=== PATIENT | male | born 1940 | race Caucasian/White ===

== ENCOUNTER → 2022-04-23 10:01 | Outpatient (BNVA) | payer MEDICARE, OTHER, SELFPAY | PROVIDERS: PCP Internal Medicine; Visit Provider Urology | DX: R32 Unspecified urinary incontinence (principal); N32.0 Bladder-neck obstruction | CPT/HCPCS: 51798 ==

== ENCOUNTER → 2022-06-18 11:03 | Outpatient (BNVA) | payer MEDICARE, OTHER, SELFPAY | PROVIDERS: PCP Internal Medicine; Visit Provider Urology | DX: N32.0 Bladder-neck obstruction (principal) | CPT/HCPCS: 52000 ==

== ENCOUNTER 2023-03-20 09:34 | Outpatient (AMB) | payer MEDICARE, OTHER, SELFPAY ==
--- NOTE | 2023-03-20 09:35 | MHC.OFFVIS ---
Intake Intake Visit Reasons: 6m follow up/PVR Intake Note: Patient is Present for Follow Up Urology Medication: Terazosin Antibiotic Allergies: Sulfa Blood Thinners: Aspirin PVR:0 Allergies Sulfa (Sulfonamide Antibiotics) Allergy (Unknown, Verified 03/20/23 09:36) Unknown HPI HPI Comments History of Present Illness Details Monty is a pleasant male. He is a patient of Dr. Meeks. He seen for the following urologic conditions. - urinary urgency - lower urinary tract symptoms Good responses resident Blood pressure running low Previously on tamsulosin Will switch from terazosin to alfuzosin 2 secondary concerns regarding blood pressure management Discussed safety regarding nighttime nocturia Encourage use of urinal if any concern regarding stability Lower urinary tract symptoms Background progressive Parkinson's Had been having weakness of stream Good response to terazosin 10 mg Prior medications tamsulosin Cystoscopy 07/03 open bladder neck Therapeutic plan - trial alfuzosin - 6 month follow-up PVR [facility] Medical History Parkinson disease Surgical History History of open heart surgery Review of Systems Const Denies chills and Denies fever(s) Card Reports no additional complaints and Denies syncope Resp Denies cough GI Denies abdominal pain and Denies heartburn Reports as per HPI and Denies change in libido Neuro Denies syncope Psych Denies change in libido Endo Denies change in libido Physical Exam Const General: cooperative, healthy appearing, comfortable and no acute distress Orientation/consciousness: patient oriented x3 HEENT Face and sinus: Yes normal facial exam Mouth: moist mucous membranes Neck Neck: Yes normal visual inspection, Yes full ROM and Yes trachea midline Chest Chest palpation & inspection: normal inspection of the chest Resp Effort & Inspection: normal respiratory effort, able to speak in complete sentences and no respiratory distress GI Inspection: Yes normal to inspection Back/Spine/Pelvis Cervical Spine: normal cervical lordosis Thoracic/Lumbar Spine: thoracic and lumbar spine normal to inspection Skin General skin exam: no rashes or lesions noted Neuro General: patient oriented x3, gait normal, tone normal and moves all extremities Extrem General: Yes normal to inspection and Yes capillary refill normal Office Procedures Post Void Residual Post Residual Void Post Void Residual (PVR): 0 [id number]-Shie Void Residual by ultrasound Assessment & Plan Assessment & Plan (1) Bladder outlet obstruction: Code(s): N32.0 - Bladder-neck obstruction Plan Six month follow-up Orders: Orders AMB Post Void Residual by ultrasound Today N32.0 - Bladder-neck obstruction Medications: New alfuzosin ER Take before bedtime 10 mg PO BEDTIME 90 tabs 1RF 90 days N32.0 - Bladder-neck obstruction, N40.1 - Benign prostatic hyperplasia with lower urinary tract symptoms, R33.9 - Retention of urine, unspecified, R35.1 - Nocturia, R39.12 - Poor urinary stream Discontinued terazosin Discontinued Reason: Patient Completed Course 10 mg PO BEDTIME 90 caps 0RF 90 days N13.8 - Other obstructive and reflux uropathy, N40.1 - Benign prostatic hyperplasia with lower urinary tract symptoms Patient Instructions: Imaging studies, laboratory and physical exam results were discussed and reviewed in detail. No major barriers to patient understanding were identified. An opportunity to ask questions regarding the treatment plan was provided. All questions were answered. The patient expressed understanding and agreement with the above treatment plan. The patient is aware they should contact our office by phone for worsening of their current condition or the appearance of new urologic symptoms. Compliance is encouraged with any medications and followup testing that is ordered. It is a privilege to participate in the urologic care of your patient. If you have any questions or concerns regarding treatment for the above conditions, or other urologic issues, please do not hesitate to contact me. The office telephone contact is [phone]. This note is constructed using voice recognition software. While every effort has been made to ensure accuracy dentist errors may have been included. Yours sincerely, Dr Rafael Ibarra MD, JULISA [facility] - Urology Providers of Expert, Compassionate Care for the Genitourinary System Coding Level of Care Code Est Pt Level 4 (67837) Diagnoses Bladder outlet obstruction N32.0 CPT Codes Post Residual Void - PVR CPT Code: 58956-Mrxy Void Residual by ultrasound ([id number])
== END 2023-03-20 10:09 | disposition home or self-care (01) ==
PROVIDERS: PCP Internal Medicine; Visit Provider Urology
DX: N32.0 Bladder-neck obstruction (principal)
CPT/HCPCS: 99214

== ENCOUNTER → 2023-03-20 09:34 | Outpatient (BNVA) | payer MEDICARE, OTHER, SELFPAY | PROVIDERS: PCP Internal Medicine; Visit Provider Urology | DX: N32.0 Bladder-neck obstruction (principal) | CPT/HCPCS: 51798; 99212 ==

== ENCOUNTER 2025-01-02 14:56 | Outpatient (AMB) | payer MEDICARE, OTHER, SELFPAY ==
--- NOTE | 2025-01-02 14:59 | A.OFFVIS_ITS ---
Vital Signs 01/02/25 15:00 Height 5 ft 7 in Weight 182 lb 15.739 oz BMI 28.7 BP 152/70 H Blood Pressure Location Lt brachial Position Sitting Pulse 60 Pulse Source Pulse Oximeter Pulse Oximetry (%) 97 Oxygen Delivery Method Room Air Intake Visit Reasons: Pulmonary embolism Medical Affairs Specialist Required: No Allergies Sulfa (Sulfonamide Antibiotics) Allergy (Unknown, Verified 01/02/25 15:04) Unknown HPI Comments Details: The patient is here for pulmonary evaluation. The patient is an 84-year-old gentleman known history of Parkinson's. Apparently he was in his usual state health until back around the end of August when he started not feeling well. Apparently had falling hurt his leg. He was more sedentary. He ended up going to the hospital at [facility] we had a workup for stroke. No evidence of any stroke although the CTA of the neck did leaf size picker what appeared to be a pulmonary emboli. Therefore he was called back to the hospital and had a formal CT scan PE protocol. I personally reviewed it. He had moderate degree of lot burden primarily in the right hemithorax more than the left. He also did undergo an echocardiogram demonstrating some RV strain suggesting a submassive PE. The patient has been on Eliquis. Unfortunately he has been falling because of the Parkinson's. Now he uses a walker. He had multiple falls and 1 resulting in a significant hematoma of his right thigh. He did have a CT scan of the thigh demonstrating the hematoma but also a slightly enlarged prostate. He was evaluated for prostate issues in the past. The patient also had colonoscopies. No evidence of any cancer that he is aware of. He had a filter placed at that time because he was taken off the Eliquis. Now he is back on the Eliquis in it I believe in January there be trying to remove the IVC filter. It is felt based on the fact that the patient had an injury to the leg that is likely that he developed a DVT and subsequently clot. Still was not clear 100% if this is a provoked or unprovoked event. However, he is high risk for falls and further bleeding and major bleeding while on the anticoagulation. The goal will be to try to treat the patient at least for 6 months unless the blood clots have not dissolved as of yet. He does have some dyspnea on exertion. Again demonstrating some right heart strain on his echo. The patient does have a family history of clotting as his mom had early strokes in her life. Will be reasonable to assess for hypercoagulable state at this time specially with other family members that may be also at risk. The patient will undergo a CTA he will continue the Eliquis for now the current dose and he will follow-up in a couple months. The hypercoagulable workup has been provided to the patient to do at [facility]. I am hopeful that the blood clots have resolved and the patient can have his filter taken off on the scheduled time. [facility] Medical History (Updated 01/02/25 @ 22:05 by Adama Elias MD) Falls Pulmonary emboli Parkinson disease Surgical History History of open heart surgery Social History (Updated 01/02/25 @ 15:09 by Nicolette Johnson CMA) Patient Tobacco Use Status: Former Tobacco user Review of Systems Const Denies chills, Denies fever(s) and Reports frequent falls Eyes Reports no additional complaints Card Reports no additional complaints, Denies syncope and Reports dyspnea on exertion Resp Denies cough, Reports dyspnea on exertion and Denies wheezing GI Denies abdominal pain and Denies heartburn Musc Reports abnormal gait Skin/Breast Reports wounds Neuro Reports abnormal gait, Denies syncope and Reports frequent falls Chepe/Lymph Reports no additional complaints Aller/Immun Denies wheezing Physical Exam Vital Signs: Last Vital Signs Pulse 60 01/02/25 15:00 BP 152/70 H 01/02/25 15:00 Pulse Ox 97 01/02/25 15:00 Oxygen Delivery Method Room Air 01/02/25 15:00 BMI result Body Mass Index 28.7 Const General: comfortable and no acute distress Orientation/consciousness: patient oriented x3 HEENT Head: Yes normocephalic Face and sinus: Yes normal facial exam Neck Neck: Yes normal visual inspection, Yes full ROM and Yes trachea midline Chest Chest palpation & inspection: normal inspection of the chest Resp Effort & Inspection: normal respiratory effort, able to speak in complete sentences and no respiratory distress Auscultation: clear to auscultation bilaterally Cardio Heart sounds: S1 normal heart sound present and S2 normal heart sound present GI Inspection: Yes normal to inspection Back/Spine/Pelvis Cervical Spine: normal cervical lordosis Thoracic/Lumbar Spine: thoracic and lumbar spine normal to inspection Skin Trauma: laceration (covered) Neuro General: patient oriented x3, gait normal, tone normal and moves all extremities Extrem General: Yes normal to inspection and Yes capillary refill normal Assessment & Plan Assessment & Plan (1) Pulmonary emboli: Comment: ?Provoked from leg injury/fall Code(s): I26.99 - Other pulmonary embolism without acute cor pulmonale Category: Medical Qualifiers: Pulmonary embolism type: unspecified Chronicity: acute Acute cor pulmonale presence: with acute cor pulmonale Qualified Code(s): I26.09 - Other pulmonary embolism with acute cor pulmonale (2) Falls: Code(s): R29.6 - Repeated falls Category: Medical (3) Parkinson disease: Code(s): G20 - Parkinson's disease Category: Medical Qualifiers: Dyskinesia presence: unspecified whether dyskinesia Fluctuating manifestations: unspecified whether manifestations fluctuate Qualified Code(s): G20.A1 - Parkinson's disease without dyskinesia, without mention of fluctuations Plan Continue Eliquis 5mg BID CTA to r/o residual clots/chronic thrombo-embolic disease-pt prefers [facility] Will have a possible IVC filter removal Bloodwork/hypercoagulability panel Consider repeating ECHO F/U 2 months and we will dicusss duration of treatment Orders: Orders CT angio chest PE protocol Today I26.99 - Other pulmonary embolism without acute cor pulmonale Prothrombin [id number] Today I26.99 - Other pulmonary embolism without acute cor pulmonale Homocysteine Today I26.99 - Other pulmonary embolism without acute cor pulmonale AT3 Activity reflex AT3Ag Today I26.99 - Other pulmonary embolism without acute cor pulmonale Factor V Leiden Today I26.99 - Other pulmonary embolism without acute cor pulmonale Lupus Anticoagulant Panel Today I26.99 - Other pulmonary embolism without acute cor pulmonale Basic Metabolic Panel Today I26.99 - Other pulmonary embolism without acute cor pulmonale Coding Level of Care Code New Pt Level 5 (78859) Diagnoses Acute pulmonary embolism with acute cor pulmonale, unspecified pulmonary embolism type I26.09 Pulmonary embolism type: unspecified Chronicity: acute Acute cor pulmonale presence: with acute cor pulmonale Falls R29.6 Parkinson's disease, unspecified whether dyskinesia present, unspecified whether manifestations fluctuate G20.A1 Dyskinesia presence: unspecified whether dyskinesia Fluctuating manifestations: unspecified whether manifestations fluctuate Time Spent (min) 60
[2025-01-02 15:00] VITALS: BP 152/70; PULSE 60; O2SAT 97; BMI 28.7
--- OUTSIDE RECORDS SUMMARY | 2025-01-02 16:38 | XMS_ITS | Encounter Summary ---
Author Organization [facility] Address [address] [place] [address] Care Team Providers Care Web Press Jogger Name Role Phone Demetrius Meeks Primary Care Provider [phone] Encounter Details Date Type Department Care Team (Late st Contact Info) Description 04/24/2022 myChart Message [facility] [address], [place] [id number] Parker Lantigua MD [address] [place] [address] Medication adjustment update Social History Tobacco Use Types Packs/Day Years Used Date Smoking Tobacco: Former Cigarettes 0.5 10 Smokeless Tobacco: Never Alcohol Use Standard Drinks/Week Comments Yes 3 (1 standard drink = 0.6 oz pur e alcohol) Sex and Gender Information Value Date Recorded Sex Assigned at Male 02/07/2022 12:33 PM EDT Legal Sex Male 8:18 AM EDT Gender Identity Male 02/07/2022 12:33 PM EDT Sexual Orientation Straight 02/07/2022 12 :33 PM EDT documented as of this encounter Miscellaneous Notes * Telephone Encounter - Taryn Sanford MD - 04/24/2022 2:15 PM ESTFrom: Monty Hammer To: Physician Parker Lantigua Sent: 04/24/2022 1:12 PM EST Subject: Medication adjustment update Hi Dr. Lantigua, this is Monty???s daughter Clare. I have just spent a few days with my dad and I feel like he hasn???t really improved since increasing his medication. He even seems slower and is reallystruggling when trying to do physical tasks. Would you want to change his medication again or do you want to lev t for him to be seen on June 02? Thanks! documented in this encounter Plan of Treatment Upcoming Encounters Date Type Department Care Team (Late st Contact Info) Description 03/16/2025 2:00 PM EST Office Visit [facility] [address] [place] [id number] Parker Lantigua MD [address] [place] [phone] 08/14/2025 1:00 PM EDT Office Visit [facility] Neurology [address] [address] Alma Badillo NP [address] [place] [phone] documented as of this encounter Visit Diagnoses Not on filedocumented in this encounter Care Teams Web Press Jogger Relationship Specialty Start Date End Date Demetrius Meeks PCP - General Internal Medicine 12/05/21 documented as of this encounter
--- OUTSIDE RECORDS SUMMARY | 2025-01-02 16:38 | XMS_ITS | Encounter Summary ---
Author Organization [facility] Address [address] [place] [address] Care Team Providers Care Automatic Bandsaw Tender Name Role Phone Demetrius Meeks Primary Care Provider [phone] Encounter Details Date Type Department Care Team (Late st Contact Info) Description 12/05/2021 Orders Only [facility] [address] [place] [address] Demetrius Meeks [address] [place] [address] Social History Tobacco Use Types Packs/Day Years Used Date Smoking Tobacco: Never Assessed Sex and Gender Information Value Date Recorded Sex Assigned at Male 02/07/2022 12:33 PM EDT Legal Sex Male 8:18 AM EDT Gender Identity Male 02/07/2022 12:33 PM EDT Sexual Orientation Straight 02/07/2022 12 :33 PM EDT documented as of this encounter Plan of Treatment Upcoming Encounters Date Type Department Care Team (Late st Contact Info) Description 03/16/2025 2:00 PM EST Office Visit [facility] [address] [place] [address] Parker Lantigua MD [address] [place] [address] 08/14/2025 1:00 PM EDT Office Visit [facility] [address] [place] [address] Alma Badillo, MINING ENGINEERING TECHNOLOGIST [address] [place] [address] documented as of this encounter Procedures * Due to [place] [email or web address] law, this organization might not be sharing negative HIV tests. Procedure Name Priority Date/Time Associated Diagnosis Comments LAB - SCANNED Routine 12/04/2021 AMB EXTERNAL XR HIP, OUTSIDE RESULT Routine 09/04/2021 US VENOUS DUPLEX, SCANNED RESULT Routine 08/29/2021 AMB EXTERNAL MRI L-SPINE, OU TSIDE RESULT Routine 08/27/2021 AMB EXTERNAL MRI BRAIN, OUTS ANDREINA RESULT Routine 10/04/2020 documented in this encounter Results * Due to [place] [email or web address] law, this organization might not be sharing negative HIV tests. * LAB - SCANNED (12/04/2021) us Demetrius Meeks LAB HISTORICAL RESULTS Final Re sult * XR Hip, Outside Result (09/04/2021) Anatomical Region Laterality Modality Other us Demetrius Meeks AMB EXTERNAL RESULT PROCEDURES Final Result * US Venous Duplex, Scanned Result (08/29/2021) Anatomical Region Laterality Modality Other us Demetrius Meeks AMB EXTERNAL RESULT PROCEDURES Final Result * MRI L-Spine, Outside Result (08/27/2021) Anatomical Region Laterality Modality Other us Demetrius Meeks AMB EXTERNAL RESULT PROCEDURES Final Result * MRI Brain, Outside Result (10/04/2020) Anatomical Region Laterality Modality Other us Demetrius Meeks AMB EXTERNAL RESULT PROCEDURES Final Result documented in this encounter Visit Diagnoses Not on filedocumented in this encounter Care Teams Automatic Bandsaw Tender Relationship Specialty Start Date End Date Demetrius Meeks PCP - General Internal Medicine 12/05/21 documented as of this encounter
--- OUTSIDE RECORDS SUMMARY | 2025-01-02 16:38 | XMS_ITS | Clinical Summary ---
Author Organization [facility], [place] [address] Address [address] [facility] [place] [address] Phone Care Team Providers Care Ball Mill Mixer Name Role Phone Demetrius Meeks MD Primary Care Provider [phone] Allergies Active Allergy Reactions Criticality Noted Date Comments Sulfacetamide Other 10/11/2020 Medications carbidopa-levodo pa (SINEMET) 25-100 mg per tablet Take 2 Tablets by mouth 4 times daily. Active midodrine (PROAMATINE) 5 mg tablet Take 1 Tablet by mouth 2 Times Daily. 2 tabs twice daily Active rosuvastatin (CRESTOR) 20 mg tablet Take 1 Tablet by mouth daily. Active sertraline (ZOLOFT) 25 mg tablet Take 1 tablet (25 mg total) by mouth 1 (one) time each day. Active multivitamine, geriatric, (Multivitamin 50 Plus) tablet Take 1 tablet by mouth 1 (one) time each day. Active CLONAZEPAM ORAL Take by mouth at bedtime. Dose unknown Active aspirin (Adult Low Dose Aspirin) 81 mg EC tablet Take 1 tablet (81 mg total) by mouth 1 (one) time each day. Active carbidopa-levodo pa CR (SINEMET CR) 50-200 mg per CR tablet Take 1 tablet by mouth at bedtime. Do not crush or chew. Active rivastigmine (EXELON) 3 mg capsule Take 1 capsule (3 mg total) by mouth 2 (two) times a day. Active isosorbide mononitrate (IMDUR) 30 mg 24 hr tablet TAKE 1 TABLET BY MOUTH EVERY DAY 90 tablet 3 11/14/2024 Active Active Problems Problem Noted Date Diagnosed Date Class 2 obesity due to exces s calories without serious comorbidity with body mass index (BMI) of 35.0 to 35.9 in adult 03/21/2024 Bradycardia 03/27/2023 Overview (04/25/2024): Medtronic dual chamber MRI compatible pacemaker 05/2023 Assessment & Plan (10/27/2024 12:02 PM EDT): Patient's heart rate is supported by his dual-chamber pacemaker. He has a very low ventricular pacing percentage. Continue in office and remote surveillance of his pacemaker as per protocol Assessment & Plan (04/25/2024 11:59 AM EST): The patient's heart rate is now supported by his pacemaker. He has not had any syncopal episodes. His pacemaker is normally functioning on remote and in office device interrogations. Continue to follow his device as per protocol Hyperlipidemia LDL goal <70 03/06/2022 Assessment & Plan (10/27/2024 12:05 PM EDT): Very well-controlled lipid profile on current dose statin. Continue Assessment & Plan (04/25/2024 11:59 AM EST): Well-controlled lipid profile on current dose statin. 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 Unfortunately, unable to find any other patent venous grafts on aortogram Assessment & Plan (10/27/2024 12:03 PM EDT): The patient denies any anginal discomfort to his current MET workload. Unfortunately, his autonomic dysfunction/orthostasis limits GDMT for his CAD. Continue his aspirin, long-acting nitrates and statin. He will notify me of any changes in his current condition. As always, we recommend as much physical activity/focus movement as possible. He is encouraged to get back to his typical exercise program through his facility. Assessment & Plan (04/25/2024 11:59 AM EST): The patient has mcgrath three-vessel CAD and all other grafts aside from his SCHMIDT to the LAD occluded. He does have collateral flow from his LAD to the RPDA and RPL. Currently, he has no anginal symptoms to his current MET workload. He remains on long-acting nitrates as well as aspirin and statin. Since he is greater than 1 year status post his NSTEMI, we will discontinue his Plavix due to his bruising. I did confirm that our recommendation is that he remain on at least 1 antiplatelet agent given his significant CAD. The patient is daughter understand. Essential hypertension 10/15/2020 Assessment & Plan (10/27/2024 12:04 PM EDT): Blood pressure well-controlled in office today without periods of orthostasis. He has not had any syncopal or presyncopal episodes on his current dose of midodrine. Continue the same Assessment & Plan (04/25/2024 11:59 AM EST): Patient's blood pressure is well-controlled in office today. He does have ongoing episodes of postural dizziness, likely related to autonomic dysfunction from his Parkinson's disease. As such, he will continue his midodrine. His Imdur would not likely have a significant impact on his blood pressure, and he is tolerating it quite well currently. Therefore, will not make any changes. We discussed moving his legs prior to any position changes and changing positions slowly. I also prescribed him prescription level compression stockings with a donning device. If it ends up being easier, we can certainly prescribe the Velcro wraps instead of the pull-on DARRYL stockings. The patient and his daughter will keep me posted if he needs a different prescription. As always, adequate hydration is recommended. Parkinson's disease ([facility] [place]24, [facility] V28) 0 10/15/2020 Resolved Problems Problem Noted Date Diagnosed Date Resolved Date NSTEMI (non-ST elevated myoc ardial infarction) ([facility] V24, [facility] V28) 12/30/2022 0 10/27/2024 Encounters Date Type Department Care Team Description 12/07/2024 9:30 PM EDT Ancillary Procedure [facility] Cardiology [facility] [address] [place] [address] 11/22/2024 9:16 AM EDT - 11/22/2024 11:59 PM EDT Hospital Encounter [facility] MRI [address] [place] [id number] Right leg weakness Discharge Disposition: Home or Self Care 10/27/2024 9:40 AM EDT Office Visit [facility] [address] [place] [address] Charlotte Concepcion NP Bradycardia (Primary Dx); Coronary artery disease involving mcgrath coronary artery of mcgrath heart without angina pectoris; Essential hypertension; Hyperlipidemia LDL goal <70 10/27/2024 Telephone [facility] - [address] [place] [address] Charlotte Concepcion NP 10/10/2024 Telephone [facility] [address] [place] [address] Barrie Gates MD 10/07/2024 Lab Requisition [facility] Lab [address] [facility] [place] [phone] Maura Ribera MD Type 2 diabetes mellitus without complications ([facility] V24, [facility] V28); Atherosclerotic heart disease of mcgrath coronary artery without angina pectoris; Hyperlipidemia, unspecified; Chronic embolism and thrombosis of unspecified vein 10/03/2024 Lab Requisition [facility] Lab [address] [facility] [place] [place] [address] Maura Ribera MD Type 2 diabetes mellitus without complications ([facility] V24, [facility] V28); Atherosclerotic heart disease of mcgrath coronary artery without angina pectoris; Hyperlipidemia, unspecified; Chronic embolism and thrombosis of unspecified vein from Last 3 Months Immunizations Name Administration Dates Next Due Influenza trivalent, 0.5mL ( Fluad) 65yo and older 02/28/2017,02/02/2016,02/10/2015 Influenza trivalent, 0.5mL, preservative free (Fluarix; FluLaval; Fluzone) ages 6mo and older (Afluria) 3 years and older 01/29/2020 Pneumococcal polysaccharide 23 valent (Pneumovax 23) 2yo and older 02/02/2016 Medical History Medical History Date Comments Hemorrhagic disorder due to extrinsic circulating anticoagulants ([facility] V24) Parkinson's disease ([facility] V24, [facility] V28) Traumatic hematoma of right thigh Family History Medical History Relation Name Comments CABG Son Fahad Relation Name Status Comments Ari Vásquez Alive Social History Tobacco Use Types Packs/Day Years Used Date Smoking Tobacco: Former Cigarettes Q uit: 05/11/1979 Smokeless Tobacco: Never Alcohol Use Standard Drinks/Week Comments Never 0 (1 standard drink = 0.6 oz pur e alcohol) Sex and Gender Information Value Date Recorded Sex Assigned at Not on file Legal Sex Male 9:08 PM EST Gender Identity Not on file Sexual Orientation Not on file Obstetrics History Last Filed Vital Signs Vital Sign Reading Time Taken Comments Blood Pressure 110/65 10/27/2024 10:06 AM EDT Pulse 68 10/27/2024 10:06 AM EDT Temperature - - Respiratory Rate - - Oxygen Saturation 96% 10/27/2024 10:06 AM EDT Inhaled Oxygen Concentration - - Weight 82.1 kg (181 lb) 10/27/2024 10:06 AM EDT Height 168.9 cm (5' 6.5 ) 10/27/2024 10:06 AM ED T Body Mass Index 28.78 10/27/2024 10:06 AM EDT Plan of Treatment Upcoming Encounters Date Type Department Care Team (Late st Contact Info) Description 06/12/2025 10:30 AM EST Ancillary Procedure [facility] [address] [facility] [address] [place] [address] Health Maintenance Due Date Last Done Comments Diabetes: Annual Foot Exam 02/15/1950 Diabetes: Annual Retina Eye Exam 02/15/1950 DTaP,Tdap,and Td Vaccines (1 - Tdap) 1961 Zoster Vaccines (1 of 2) 02/15/1992 Pneumococcal Vaccine: 50+ Years (2 of 2 - PCV) 02/01/2017 02/02/2016 RSV Immunization Adult Patients (1 - 1-dose 75+ series) 2017 Cholesterol Screening (Lipid Panel) 04/12/2022 Falls Risk Assessment 04/12/2022 Medicare Annual Wellness Visit 04/12/2022 Social Influencers of Health Screening 04/12/2022 Depression Screening 05/11/2024 COVID-19 Vaccine ( season) 2024 02/19/2024, 02/24/2022, 09/10/2021, Additional history exists Diabetes: Annual Urine Albumin-Creatinine Ratio (uACR) 09/20/2024 Diabetes: Blood Sugar Control Test (HGBA1C) 09/20/2024 Influenza Vaccine (#1) 2025 , 02/06/2023, 02/11/2022, Additional history exists Diabetes: Annual GFR (Glomerular Filtration Rate) 10/04/2025 10/04/2024, 09/26/2024, 09/20/2024 Hypertension/CHF/CAD Annual BMP Blood Test 10/04/2025 10/04/2024, 09/26/2024, 09/20/2024 HIB Vaccines Aged Out No longer eligi ble based on patient's age to complete this topic HPV Vaccines Aged Out No longer eligi ble based on patient's age to complete this topic Hepatitis A Vaccines Aged Out No long er eligible based on patient's age to complete this topic Hepatitis B Vaccines Aged Out No long er eligible based on patient's age to complete this topic IPV Vaccines Aged Out No longer eligi ble based on patient's age to complete this topic MMR Vaccines Aged Out No longer eligi ble based on patient's age to complete this topic Meningococcal ACWY Vaccine Aged Out N o longer eligible based on patient's age to complete this topic Meningococcal B Vaccine Aged Out No l onger eligible based on patient's age to complete this topic RSV Immunization Patients Under 20 months Aged Out No longer eligible based on patient's age to complete this topic Varicella Vaccines Aged Out No longer eligible based on patient's age to complete this topic Medical Devices Implanted Type Area Fisher Seal Device Identifier Shelf Expiration Date Model / Serial / Lot Medt-Card Vidal Vega [id number] Implanted: (Quantity not on file) Cardiac Pacemaker [employer] - CARDIAC RHYTH-CRDM VIDAL XT DR VEGA [id number] / [id number] / Procedures Procedure Name Priority Date/Time Associated Diagnosis Comments CARDIAC DEVICE CHECK- REMOTE- MURJ Routine 12/07/2024 9:25 PM EDT MR LUMBAR SPINE WO CONTRAST Routine 11/22/2024 11:12 AM EDT Right leg weakness BASIC METABOLIC PANEL Routine 10/04/2024 10:17 AM EDT Type 2 diabetes mellitus without complications (CMS/HCC V24, CMS/HCC V28) Atherosclerotic heart disease of mcgrath coronary artery without angina pectoris Hyperlipidemia, unspecified Chronic embolism and thrombosis of unspecified vein COMPLETE BLOOD COUNT Routine 10/04/2024 10:17 AM EDT Type 2 diabetes mellitus without complications (CMS/HCC V24, CMS/HCC V28) Atherosclerotic heart disease of mcgrath coronary artery without angina pectoris Hyperlipidemia, unspecified Chronic embolism and thrombosis of unspecified vein from Last 3 Months Results * Cardiac device check - Remote- MURJ (12/07/2024 9:25 PM EDT) Date Time Interrogation Session [id number] CV DEVICE CHECK Type Interrogation Session Remote CV DEVICE CHECK Implantable Pulse Generator Fisher Seal MDT CV DEVICE CHECK Implantable Pulse Generator Type IPG CV DEVICE CHECK Implantable Pulse Generator Model [place] XT DR VEGA [id number] CV DEVICE CHECK Implantable Pulse Generator Serial Number [id number] CV DEVICE CHECK Implantable Pulse Generator Implant Date [id number] CV DEVICE CHECK Battery Remaining Longevity 110.0 CV DEVICE CHECK Battery Voltage 3.010 CV D EVICE CHECK Battery FRONT DESK TEAM MEMBER Trigger 2.625 CV DEVICE CHECK Battery Status Middle of Service CV DEVICE CHECK Elan Statistic RA Percent Paced 74.94 CV DEVICE CHECK Elan Statistic RV Percent Paced 7.30 CV DEVICE CHECK Atrial Tachy Statistic AT/AF Gilbert Percent 0.00 CV DEVICE CHECK Lead Channel Sensing Intrinsic Amplitude 1.875 CV DEVICE CHECK Lead Channel Setting Sensing Sensitivity 0.30 CV DEVICE CHECK Lead Channel Impedance Value 380 CV DEVICE CHECK Lead Channel Pacing Threshold Amplitude 1.125 CV DEVICE CHECK Lead Channel Pacing Threshold Pulse Width 0.4 CV DEVICE CHECK Lead Channel RA Pacing Threshold Date 2023-05-30 CV DEVICE CHECK Lead Channel Setting Pacing Amplitude 2.000 CV DEVICE CHECK Lead Channel Setting Pacing Pulse Width 1.5 CV DEVICE CHECK Lead Channel Sensing Intrinsic Amplitude 21.625 CV DEVICE CHECK Lead Channel Setting Sensing Sensitivity 0.90 CV DEVICE CHECK Lead Channel Impedance Value 646 CV DEVICE CHECK Lead Channel Pacing Threshold Amplitude 1.375 CV DEVICE CHECK Lead Channel Pacing Threshold Pulse Width 0.4 CV DEVICE CHECK Lead Channel RV Pacing Threshold Date 2024-11-28 CV DEVICE CHECK Lead Channel Setting Pacing Amplitude 2.750 CV DEVICE CHECK Lead Channel Setting Pacing Pulse Width 0.4 CV DEVICE CHECK Elan Setting Mode (NBG Code) AAI<=>DDD CV DEVICE CHECK Elan Setting Lower Rate Limit 60 CV DEVICE CHECK Elan Setting AT Mode Switch Rate 171 CV DEVICE CHECK Elan Setting Maximum Tracking Rate 130 CV DEVICE CHECK Elan Setting Maximum Sensor Rate 130 CV DEVICE CHECK Elan Setting PAV Delay 180 CV DEVICE CHECK Elan Setting CHIDI Delay 150 CV DEVICE CHECK Zone Setting Type Category AT/AF CV DEVICE CHECK Rate 171 CV DEVICE CHECK Therapies Some Rx Off CV DEVIC E CHECK Zone Setting Status Monitor CV DEVICE CHECK Zone ID 2 CV DEVICE CHECK Zone Setting Type Category VT CV DEVICE CHECK Rate 150 CV DEVICE CHECK Zone Setting Status ENABLED CV DEVICE CHECK Zone ID 6 CV DEVICE CHECK Date of Service 2024-12-13 CV DEVICE CHECK Anatomical Region Laterality Modality Device Interroga tion 11/29/2024 12:2 8 AM EDT Impressions 12/07/2024 4:15 PM EDT Normal Remote: No Events * Normal Device Function * Alerts or events: None * Battery: OK, 9.17 yrs * Sensing, impedance and thresholds reviewed * Programmed parameters reviewed * Presenting rhythm reviewed * Heart Rate Histograms reviewed * No significant changes noted Narrative Procedure Note Joe Lee MD - 12/07/2024 IMPRESSION: Normal Remote: No Events * Normal Device Function * Alerts or events: None * Battery: OK, 9.17 yrs * Sensing, impedance and thresholds reviewed * Programmed parameters reviewed * Presenting rhythm reviewed * Heart Rate Histograms reviewed * No significant changes noted us Joe Lee MD CV IMPLANTABLE CARDIAC DEV ICE PROCEDURES Final Result * MR Lumbar Spine wo Contrast (11/22/2024 11:12 AM EDT) Anatomical Region Laterality Modality L-spine, Spine Magnetic Resonan ce 11/22/2024 12:0 3 PM EDT Impressions 11/22/2024 12:16 PM EDT Central laminotomy at L4-5. Degenerative changes throughout the lumbar spine. The findings are similar to 08/27/2021. -------- FINAL REPORT -------- Dictated By: Fahad Cedeño Dictated Date: 11/22/2024 12:03 ET Assigned Physician: Fahad Cedeño Reviewed and Electronically Signed By: Fahad Cedeño Signed Date: 11/22/2024 12:16 ET Workstation ID: [id number] Transcribed By: Self Edit Transcribed Date: 11/22/2024 12:03 ET Narrative 11/22/2024 12:16 PM EDT PROCEDURE: MRI of the lumbar spine without contrast. TECHNIQUE: Multiplanar multisequence MRI of the lumbar spine without intravenous contrast administration. HISTORY: right leg weakness COMPARISON: 08/27/2021. FINDINGS: Circumaortic left renal vein. Mild lower lumbar and sacral paraspinous muscular atrophy. Postsurgical scarring in the dorsal soft tissues at L4-5. Slight L4-5 anterolisthesis. No marrow infiltrative lesion. No compression deformity. Mild Baastrup's changes. Normal position of the conus at T12. Mortise levels: L1-2: Mild disc space height loss and endplate irregularity. Small symmetric disc bulge. Mild bilateral facet arthropathy and ligamentum flavum hypertrophy. No significant spinal or foraminal stenosis. L2-3: Mild endplate irregularity. Small symmetric disc bulge with minimal endplate osteophytes. Slight widening of the right facet joint and mild bilateral ligament flavum hypertrophy suggesting facet joint hypermobility. Mild bilateral facet arthropathy. Mild right foraminal stenosis. Mild spinal stenosis. L3-4: Mild endplate irregularity. Small symmetric disc bulge with minimal endplate osteophytes. Mild bilateral facet arthropathy. No significant spinal or foraminal stenosis. L4-5: Slight anterolisthesis. Mild endplate irregularity. Very small protrusion and annular fissure in the left foraminal zone. Moderate bilateral facet arthropathy. Central laminotomy defect. No significant spinal or foraminal stenosis. L5-S1: Moderate disc space height loss and endplate irregularity with a small symmetric disc osteophyte complex and mild bilateral facet arthropathy. Mild left foraminal stenosis. No spinal stenosis. Procedure Note Fahad Cedeño MD - 11/22/2024 PROCEDURE: MRI of the lumbar spine without contrast. TECHNIQUE: Multiplanar multisequence MRI of the lumbar spine withoutintravenous contrast administration. HISTORY: right leg weakness COMPARISON: 08/27/2021. FINDINGS: Circumaortic left renal vein. Mild lower lumbar and sacral paraspinousmuscular atrophy. Postsurgical scarring in the dorsal soft tissues atL4-5. Slight L4-5 anterolisthesis. No marrow infiltrative lesion. Nocompression deformity. Mild Baastrup's changes. Normal position of the conus at T12. Mortise levels: L1-2: Mild disc space height loss and endplate irregularity. Smallsymmetric disc bulge. Mild bilateral facet arthropathy and ligamentumflavum hypertrophy. No significant spinal or foraminal stenosis. L2-3: Mild endplate irregularity. Small symmetric disc bulge with minimalendplate osteophytes. Slight widening of the right facet joint and mildbilateral ligament flavum hypertrophy suggesting facet jointhypermobility. Mild bilateral facet arthropathy. Mild right foraminalstenosis. Mild spinal stenosis. L3-4: Mild endplate irregularity. Small symmetric disc bulge with minimalendplate osteophytes. Mild bilateral facet arthropathy. No significantspinal or foraminal stenosis. L4-5: Slight anterolisthesis. Mild endplate irregularity. Very smallprotrusion and annular fissure in the left foraminal zone. Moderatebilateral facet arthropathy. Central laminotomy defect. No significantspinal or foraminal stenosis. L5-S1: Moderate disc space height loss and endplate irregularity with asmall symmetric disc osteophyte complex and mild bilateral facetarthropathy. Mild left foraminal stenosis. No spinal stenosis. IMPRESSION: Central laminotomy at L4-5. Degenerative changes throughout the lumbarspine. The findings are similar to 08/27/2021. -------- FINAL REPORT -------- Dictated By: Fahad Cedeño Dictated Date: 11/22/2024 12:03 ET Assigned Physician: Fahad Cedeño Reviewed and Electronically Signed By: Fahad Cedeño Signed Date: 11/22/2024 12:16 ET Workstation ID: [id number] Transcribed By: Self Edit Transcribed Date: 11/22/2024 12:03 ET Erlinda FINK IMG MRI PROCEDURES Final Res ult * (ABNORMAL) Complete blood count (10/04/2024 10:17 AM EDT) WBC 6.5 4.8 - 10.8 K/mcL LAB HEMETOLOGY METHOD 10/04/2024 1:15 PM EDT [facility] RBC 3.60(L) 4.50 - 5.50 M/mcL LAB HEMETOLOGY METHOD 10/04/2024 1:15 PM EDT [facility] Hemoglobin 12.1(L) 13.5 - 17.5 g/dL LAB HEMETOLOGY METHOD 10/04/2024 1:15 PM EDT [facility] Hematocrit 39.4(L) 42.0 - 54.0 % LAB HEMETOLOGY METHOD 10/04/2024 1:15 PM EDT [facility] MCV 108.2(H) 79.0 - 98.0 FL LAB HEMETOLOGY METHOD 10/04/2024 1:15 PM EDT [facility] MCH 33.2(H) 27.0 - 32.0 pcg LAB HEMETOLOGY METHOD 10/04/2024 1:15 PM EDT [facility] MCHC 30.7(L) 32.0 - 37.0 g/dL LAB HEMETOLOGY METHOD 10/04/2024 1:15 PM EDT [facility] RDW 17.2(H) 11.0 - 15.0 % LAB HEMETOLOGY METHOD 10/04/2024 1:15 PM EDT [facility] Platelets 374 130 - 400 K/mcL LAB HEMETOLOGY METHOD 10/04/2024 1:15 PM EDT [facility] MPV 9.7 7.0 - 11.0 FL LAB HEMETOLOGY METHOD 10/04/2024 1:15 PM EDT [facility] NRBC 0.0 <1.0 % LAB HEMETOLOGY METHOD 10/04/2024 1:15 PM EDT [facility] NRBC Absolute 0.00 <0.10 K/mcL LAB HEMETOLOGY METHOD 10/04/2024 1:15 PM EDT [facility] Blood Venous blood specimen / Unknown Venipuncture / Unknown 10/04/2024 10:17 AM EDT 10/04/2024 12:21 PM EDT us Maura Ribera MD LAB BLOOD ORDERABLES Fin al Result [facility] [address] [place] [address], * (ABNORMAL) Basic metabolic panel (10/04/2024 10:17 AM EDT) Sodium 138 133 - 145 mmol/L LAB CHEMISTRY METHOD 10/04/2024 2:19 PM EDT [facility] Potassium 4.5 3.5 - 5.5 mmol/L LAB CHEMISTRY METHOD 10/04/2024 2:19 PM EDT [facility] Chloride 107 96 - 110 mmol/L LAB CHEMISTRY METHOD 10/04/2024 2:19 PM [facility] CO2 27 21 - 32 mmol/L LAB CHEMISTRY METHOD 10/04/2024 2:19 PM [facility] Anion Gap 4 3 - 11 LAB CHEMISTRY METHOD 10/04/2024 2:19 PM [facility] Glucose 132(H) 70 - 100 mg/dL LAB CHEMISTRY METHOD 10/04/2024 2:19 PM [facility] BUN 20 5 - 25 mg/dL LAB CHEMISTRY METHOD 10/04/2024 2:19 PM [facility] Creatinine 0.94 0.70 - 1.30 mg/dL LAB CHEMISTRY METHOD 10/04/2024 2:19 PM [facility] eGFR 81 >=60 mL/min/1. 73m2 LAB CHEMISTRY METHOD 10/04/2024 2:19 PM [facility] Comment:Calculation based on the Chronic Kidney Disease Epidemiology Collaboration (CKD-EPI) equation refit without adjustment for race. BUN/Creatinine Ratio 21.3 LAB CHEMISTRY METHOD 10/04/2024 2:19 PM [facility] Calcium 9.6 8.5 - 10.5 mg/dL LAB CHEMISTRY METHOD 10/04/2024 2:19 PM [facility] Blood Venous blood specimen / Unknown Venipuncture / Unknown 10/04/2024 10:17 AM EDT 10/04/2024 12:18 PM EDT us Maura Ribera MD LAB BLOOD ORDERABLES Fin al Result [facility] [address] [place] [address], from Last 3 Months Insurance MEDICARE [facility] Care Teams Ball Mill Mixer Relationship Specialty Start Date End Date Demetrius Meeks MD [address] [place] [phone] PCP - General Internal Medicine 06/15/24
--- OUTSIDE RECORDS SUMMARY | 2025-01-02 16:38 | XMS_ITS | Encounter Summary ---
Author Organization [facility] Address [address] [place] [address] Care Team Providers Care Portainer Operator Name Role Phone Demetrius Meeks Qasim Primary Care Provider [phone] Encounter Details Date Type Department Care Team (Late st Contact Info) Description 05/27/2024 myChart Message [facility] Financial Clearance Department [address] [place] [id number] Neli Mccormack donepeziL (ARICEPT) 5 mg tablet Social History Tobacco Use Types Packs/Day Years [...] Description 03/16/2025 2:00 PM EST Office Visit [facility] [address] [place] [address] Parker Lantigua MD [address] [place] [address] 08/14/2025 1:00 PM EDT Office Visit [facility] [address] [place] [address] Alma Badillo, WEB MACHINE TENDER [address] [place], [place] [phone] documented as of this encounter Visit Diagnoses Not on filedocumented in this encounter Care Teams Portainer Operator Relationship Specialty Start Date End Date Demetrius Meeks PCP - General Internal Medicine 12/05/21 documented as of this encounter
--- OUTSIDE RECORDS SUMMARY | 2025-01-02 16:38 | XMS_ITS | Clinical Summary ---
Author Organization [facility] Address [address] [place] [address] Care Team Providers Care Slusher Operator Name Role Phone Demetrius Meeks Primary Care Provider [phone] Allergies Active Allergy Reactions Criticality Noted Date Comments Sulfa (Sulfonamide Antibiotics) Rash Low 07/2020 Medications isosorbide mononitrate ER (IMDUR) 30 mg tablet Take 30 mg by mouth once a day. 2 Active polyethylene glycol 3350 (MIRALAX ORAL) Take 17 g by mouth. 3 Active melatonin 5 mg tablet,chewable Chew and swallow 5 mg by mouth nightly. Active aspirin (ASPIR-81 ORAL) Acti ve multivitamin (THERAGRAN) tablet Take 1 tablet by mouth once a day. Active rosuvastatin (CRESTOR) 20 mg tablet Take 20 mg by mouth once a day. Active famotidine (PEPCID) 20 mg tablet SMARTSI Tablet(s) By Mouth Twice Daily PRN 5 Active carbidopa-levod opa ER/CR (SINEMET ER/CR) 50-200 mg tablet Take 1 tablet by mouth nightly. At bedtime (9-10 PM) 90 tablet 3 5 026 Active sertraline (ZOLOFT) 25 mg tablet TAKE 1 TABLET BY MOUTH EVERY NIGHT. 90 tablet 3 5 Active carbidopa-levod opa (SINEMET) 25-100 mg tablet TAKE 2 TABLETS BY MOUTH 4 TIMES A DAY AT 8 AM, 12 NOON, 4 PM, AND 8 PM 720 tablet 3 5 Active midodrine (PROAMATINE) 5 mg tablet TAKE 2 TABLETS (10 MG TOTAL) BY MOUTH 2 (TWO) TIMES A DAY. 10 MG AT 8 AM AND 10 MG AT 2 PM 360 tablet 1 5 Active rivastigmine (EXELON) 4.5 mg capsule Take 1 capsule (4.5 mg total) by mouth 2 times a day. 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 Excessive daytime sleepiness 12/02/2022 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 Slow transit constipation 06/04/2022 Peripheral edema 08/21/2021 Shortness of breath 08/21/2021 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 Essential hypertension 10/15/2020 Coronary artery disease invo lving [place] coronary artery of [place] heart without angina pectoris 10/15/2020 Parkinson's disease 11/07/2018 Heart disease 02/07/1991 Encounters Date Type Department Care Team Description 12/20/2024 Refill [facility] [address] [place] [phone] Taryn Sanford MD REM sleep behavior disorder 12/13/2024 Refill [facility] [address] [place] [address] Taryn Sanford MD REM sleep behavior disorder 12/06/2024 10:00 AM EDT Telehealth [facility] [address] [place] [phone] Alma Badillo NP Parkinson's disease without dyskinesia or fluctuating manifestations (HCC) (Primary Dx) 11/19/2024 Refill [facility] [address] [place] [address] Parker Lantigua MD 11/15/2024 Refill [facility] [address] [place] [address] Parker Lantigua MD 11/11/2024 Refill [facility] [address] [place] [phone] Parker Lantigua MD 10/30/2024 Refill [facility] [address] [place] [address] Parker Lantigua MD 10/28/2024 Telephone [facility] [address] [place] [address] Rachel Koenig RN from Last 3 Months Family History Medical History Relation Name Comments Stroke Maternal Grandfather Stroke Maternal Grandmother Stroke Mother Relation Name Status Comments Maternal Grandfather Maternal Grandmother Mother Social History Tobacco Use Types Packs/Day Years [...] Orientation Straight 02/07/2022 12 :33 PM EDT Last Filed Vital Signs Vital Sign Reading Time Taken Comments Blood Pressure 93/61 08/11/2024 3:16 PM EDT Pulse 60 08/11/2024 3:16 PM EDT Temperature 36.4 C (97.6 F) 08/11/2024 3:10 PM EDT Respiratory Rate 18 08/11/2024 3:10 PM EDT Oxygen Saturation 98% 08/11/2024 3:10 PM EDT Inhaled Oxygen Concentration - - Weight 83.9 kg (185 lb) 08/11/2024 3:10 PM EDT Height 170.2 cm (5' 7 ) 08/11/2024 3:10 PM EDT Body Mass Index 28.98 08/11/2024 3:10 PM EDT Plan of Treatment Upcoming Encounters Date Type Department Care Team (Late st Contact Info) Description 03/16/2025 2:00 PM EST Office Visit [facility] [address] [place] [address] Parker Lantigua MD [address] [place] [address] 08/14/2025 1:00 PM EDT Office Visit [facility] [address] [place] [phone] Alma Badillo NP [address] [place] [phone] Health Maintenance Due Date Last Done Comments Medicare AWV 1941 DTaP,Tdap,and Td Vaccines (1 - Tdap) 02/15/1964 Zoster Vaccines (1 of 2) 02/15/1992 Pneumococcal Vaccine: 50+ Years (2 of 2 - PCV) 02/01/2017 02/02/2016 RSV Vaccine (60+ years old and patients) (1 - 1-dose 75+ series) 2017 Alcohol/Substance Use Screening 05/11/2024 Depression Screening and Follow-Up 05/11/2024 Health Care Proxy Review 05/11/2024 Social Drivers of Health Annual Screening 05/11/2024 COVID-19 Vaccine ( season) 2024 02/19/2024, 02/24/2022, 09/10/2021, Additional history exists Influenza Vaccine (#1) 2025 , 02/06/2023, 02/11/2022, Additional history exists Basic Metabolic Panel 10/04/2025 10/04/2024 , 09/26/2024, 09/20/2024 Hepatitis B Vaccines Aged Out No long er eligible based on patient's age to complete this topic Insurance MEDICARE [facility] Care Teams Slusher Operator Relationship Specialty Start Date End Date Demetrius Meeks PCP - General Internal Medicine 12/05/21
--- OUTSIDE RECORDS SUMMARY | 2025-01-02 16:38 | XMS_ITS | Encounter Summary ---
Author Organization [facility] Address [address] [place] [address] Care Team Providers Care Assignment Desk Editor Name Role Phone Demetrius Meeks MD Primary Care Provider [phone] Encounter Details Date Type Department Care Team (Late Contact Info) Description 10/03/2024 Lab Requisition [facility] - Main Lab [address] [facility] [place] [address] Maura Ribera MD [address] [facility] 1 [place], [place] [phone] Type 2 diabetes mellitus without complications (CMS/HCC V24, CMS/HCC V28); Atherosclerotic heart disease of [place] coronary artery without angina pectoris; Hyperlipidemia, unspecified; Chronic embolism and thrombosis of unspecified vein Social History Tobacco Use Types Packs/Day Years [...] on file Sexual Orientation Not on file documented as of this encounter Plan of Treatment Upcoming Encounters Date Type Department Care Team (Late Contact Info) Description 06/12/2025 10:30 AM EST Ancillary Procedure [facility] - [address] [facility] [address] [place] [address] documented as of this encounter Procedures Procedure Name Priority Date/Time Associated Diagnosis Comments COMPLETE BLOOD COUNT Routine 10/04/2024 10:17 AM EDT Type 2 diabetes mellitus without complications ([facility] V24, [facility] V28) Atherosclerotic heart disease of [place] coronary artery without angina pectoris Hyperlipidemia, unspecified Chronic embolism and thrombosis of unspecified vein BASIC METABOLIC PANEL Routine 10/04/2024 10:17 AM EDT Type 2 diabetes mellitus without complications ([facility] V24, [facility] V28) Atherosclerotic heart disease of [place] coronary artery without angina pectoris Hyperlipidemia, unspecified Chronic embolism and thrombosis of unspecified vein documented in this encounter Results * (ABNORMAL) Basic metabolic panel (10/04/2024 10:17 AM EDT) Sodium 138 133 - 145 mmol/L LAB CHEMISTRY METHOD 10/04/2024 2:19 PM [facility] Potassium 4.5 3.5 - 5.5 mmol/L LAB CHEMISTRY METHOD 10/04/2024 2:19 PM [facility] Chloride 107 96 - 110 mmol/L LAB CHEMISTRY METHOD 10/04/2024 2:19 PM [facility] CO2 27 21 - 32 mmol/L LAB CHEMISTRY METHOD 10/04/2024 2:19 PM [facility] Anion Gap 4 3 - 11 LAB CHEMISTRY METHOD 10/04/2024 2:19 PM [facility] Glucose 132(H) 70 - 100 mg/dL LAB CHEMISTRY METHOD 10/04/2024 2:19 PM [facility] BUN 20 5 - 25 mg/dL LAB CHEMISTRY METHOD 10/04/2024 2:19 PM [facility] Creatinine 0.94 0.70 - 1.30 mg/dL LAB CHEMISTRY METHOD 10/04/2024 2:19 PM [facility] eGFR 81 >=60 mL/min/1. 73m2 LAB CHEMISTRY METHOD 10/04/2024 2:19 PM EDT [facility] Comment:Calculation based on the Chronic Kidney Disease Epidemiology Collaboration (CKD-EPI) equation refit without adjustment for race. BUN/Creatinine Ratio 21.3 LAB CHEMISTRY METHOD 10/04/2024 2:19 PM EDT [facility] Calcium 9.6 8.5 - 10.5 mg/dL LAB CHEMISTRY METHOD 10/04/2024 2:19 PM EDT [facility] Blood Venous blood specimen / Unknown Venipuncture / Unknown 10/04/2024 10:17 AM EDT 10/04/2024 12:18 PM EDT us Maura Ribera MD LAB BLOOD ORDERABLES Fin al Result [facility] [address] [place] [address], * (ABNORMAL) Complete blood count (10/04/2024 10:17 AM EDT) WBC 6.5 4.8 - 10.8 K/mcL LAB HEMETOLOGY METHOD 10/04/2024 1:15 PM EDT [facility] RBC 3.60(L) 4.50 - 5.50 M/mcL LAB HEMETOLOGY METHOD 10/04/2024 1:15 PM T [facility] Hemoglobin 12.1(L) 13.5 [...] al Result [facility] [address] [place] [address], documented in this encounter Visit Diagnoses Diagnosis Type 2 diabetes mellitus without complications (CMS/HCC V24, CMS/HCC V28) Atherosclerotic heart disease of [place] coronary artery without angina pectoris Hyperlipidemia, unspecified Chronic embolism and thrombosis of unspecified vein Encounter for adjustment or management of cardiac device documented in this encounter Care Teams Assignment Desk Editor Relationship Specialty Start Date End Date Demetrius Meeks MD [address] [place] [address] PCP - General Internal Medicine 06/15/24 documented as of this encounter
--- OUTSIDE RECORDS SUMMARY | 2025-01-02 16:38 | XMS_ITS | Encounter Summary ---
Author Organization [facility] Address [address] [place] [address] Care Team Providers Care Commercial Project Manager Name Role Phone Demetrius Meeks Qasim Primary Care Provider [phone] Encounter Details Date Type Department Care Team (Late st Contact Info) Description 02/20/2022 myChart Message [facility] [address] [place] [address] Parker Lantigua MD [address] [place] [phone] Updates Social History Tobacco Use Types Packs/Day Years [...] Description 03/16/2025 2:00 PM EST Office Visit [facility] [address] [place] [address] Parker Lantigua MD [address] [place] [address] [phone] 08/14/2025 1:00 PM EDT Office Visit [facility] [address] [place], [place] [phone] Alma Badillo, ADVANCED MANUFACTURING ASSOCIATE [address] [place], [place] [phone] documented as of this encounter Visit Diagnoses Not on filedocumented in this encounter Care Teams Commercial Project Manager Relationship Specialty Start Date End Date Demetrius Meeks PCP - General Internal Medicine 12/05/21 documented as of this encounter
--- OUTSIDE RECORDS SUMMARY | 2025-01-02 16:38 | XMS_ITS | Encounter Summary ---
Author Organization [facility] Address [address] [place] [address] Care Team Providers Care Television Cabinet Finisher Name Role Phone Demetrius Meeks MD Primary Care Provider [phone] Encounter Details Date Type Department Care Team (Late Contact Info) Description 10/07/2024 Lab Requisition [facility] - Main Lab [address] [facility] [place] [address] Maura Ribera MD [address] [facility] 1 [place], [place] [phone] Type 2 diabetes mellitus without complications (CMS/HCC V24, CMS/HCC V28); Atherosclerotic heart disease of [place] coronary artery without angina pectoris; Hyperlipidemia, unspecified; [...] Description 06/12/2025 10:30 AM EST Ancillary Procedure [facility] - [address] [place] [address] documented as of this encounter Visit Diagnoses Diagnosis Type 2 diabetes mellitus without complications ([facility] V24, [facility] V28) Atherosclerotic heart disease of [place] coronary artery without angina pectoris Hyperlipidemia, unspecified Chronic embolism and thrombosis of unspecified vein Encounter for adjustment or management of cardiac device documented in this encounter Care Teams Television Cabinet Finisher Relationship Specialty Start Date End Date Demetrius Meeks MD [address] [place] [address] PCP - General Internal Medicine 06/15/24 documented as of this encounter
--- OUTSIDE RECORDS SUMMARY | 2025-01-02 16:38 | XMS_ITS | Encounter Summary ---
Author Organization [facility] Address [address] [place] [address] Care Team Providers Care Correspondence Section Supervisor Name Role Phone Demetrius Meeks MD Primary Care Provider [phone] Encounter Details Date Type Department Care Team (Late Contact Info) Description 09/26/[address] [facility] - Main Lab [address] [facility] [place] [address] Maura Ribera MD [address] [facility] 1 [place], [place] [phone] Type 2 diabetes mellitus without complications (CMS/HCC V24, CMS/HCC V28); Atherosclerotic heart disease of [place] coronary artery without angina pectoris; Hyperlipidemia, unspecified; [...] Description 06/12/2025 10:30 AM EST Ancillary Procedure [facility] - [address] [facility] [address] [place] [address] documented as of this encounter Procedures Procedure Name Priority Date/Time Associated Diagnosis Comments COMPLETE BLOOD COUNT Routine 09/26/2024 5:45 AM EDT Type 2 diabetes mellitus without complications ([facility] V24, [facility] V28) Atherosclerotic heart disease of [place] coronary artery without angina pectoris Hyperlipidemia, unspecified Chronic embolism and thrombosis of unspecified vein BASIC METABOLIC PANEL Routine 09/26/2024 5:45 AM EDT Type 2 diabetes mellitus without complications ([facility] V24, [facility] V28) Atherosclerotic heart disease of [place] coronary artery without angina pectoris Hyperlipidemia, unspecified Chronic embolism and thrombosis of unspecified vein documented in this encounter Results * Basic metabolic panel (09/26/2024 5:45 AM EDT) Sodium 143 133 - 145 mmol/L LAB CHEMISTRY METHOD 09/26/2024 10:30 AM [facility] Potassium 4.2 3.5 - 5.5 mmol/L LAB CHEMISTRY METHOD 09/26/2024 10:30 AM [facility] Chloride 108 96 - 110 mmol/L LAB CHEMISTRY METHOD 09/26/2024 10:30 AM [facility] CO2 26 21 - 32 mmol/L LAB CHEMISTRY METHOD 09/26/2024 10:30 AM [facility] Anion Gap 9 3 - 11 LAB CHEMISTRY METHOD 09/26/2024 10:30 AM [facility] Glucose 84 70 - 100 mg/dL LAB CHEMISTRY METHOD 09/26/2024 10:30 AM [facility] BUN 16 5 - 25 mg/dL LAB CHEMISTRY METHOD 09/26/2024 10:30 AM [facility] Creatinine 0.76 0.70 - 1.30 mg/dL LAB CHEMISTRY METHOD 09/26/2024 10:30 AM [facility] eGFR 90 >=60 mL/min/1. 73m2 LAB CHEMISTRY METHOD 09/26/2024 10:30 AM EDT [facility] Comment:Calculation based on the Chronic Kidney Disease Epidemiology Collaboration (CKD-EPI) equation refit without adjustment for race. BUN/Creatinine Ratio 21.1 LAB CHEMISTRY METHOD 09/26/2024 10:30 AM T [facility] Calcium 8.9 8.5 - 10.5 mg/dL LAB CHEMISTRY METHOD 09/26/2024 10:30 AM T [facility] Blood Venous blood specimen / Unknown Venipuncture / Unknown 09/26/2024 5:45 AM EDT 09/26/2024 9:32 AM EDT us Maura Ribera MD LAB BLOOD ORDERABLES Fin al Result [facility] [address] [place] [address], * (ABNORMAL) Complete blood count (09/26/2024 5:45 AM EDT) WBC 8.6 4.8 - 10.8 K/mcL LAB HEMETOLOGY METHOD 09/26/2024 10:42 AM T [facility] RBC 3.10(L) 4.50 - 5.50 M/mcL LAB HEMETOLOGY METHOD 09/26/2024 10:42 AM [facility] Hemoglobin 10.1(L) 13.5 - 17.5 g/dL LAB HEMETOLOGY METHOD 09/26/2024 10:42 AM T [facility] Hematocrit 32.5(L) 42.0 - 54.0 % LAB HEMETOLOGY METHOD 09/26/2024 10:42 AM EDT [facility] MCV 105.9(H) 79.0 - 98.0 FL LAB HEMETOLOGY METHOD 09/26/2024 10:42 AM [facility] MCH 32.9(H) 27.0 - 32.0 pcg LAB HEMETOLOGY METHOD 09/26/2024 10:42 AM EDT [facility] MCHC 31.1(L) 32.0 - 37.0 g/dL LAB HEMETOLOGY METHOD 09/26/2024 10:42 AM [facility] RDW 17.0(H) 11.0 - 15.0 % LAB HEMETOLOGY METHOD 09/26/2024 10:42 AM EDT [facility] Platelets 419(H) 130 - 400 K/mcL LAB HEMETOLOGY METHOD 09/26/2024 10:42 AM EDT [facility] MPV 9.4 7.0 - 11.0 FL LAB HEMETOLOGY METHOD 09/26/2024 10:42 AM EDT [facility] NRBC 0.0 <1.0 % LAB HEMETOLOGY METHOD 09/26/2024 10:42 AM T [facility] NRBC Absolute 0.00 <0.10 K/mcL LAB HEMETOLOGY METHOD 09/26/2024 10:42 AM [facility] Blood Venous blood specimen / Unknown Venipuncture / Unknown 09/26/2024 5:45 AM EDT 09/26/2024 9:32 AM EDT us Maura Ribera MD LAB BLOOD ORDERABLES Fin al Result [facility] [address] [place] [address], documented in this encounter Visit Diagnoses Diagnosis Type 2 diabetes mellitus without complications (CMS/HCC V24, CMS/HCC V28) Atherosclerotic heart disease of [place] coronary artery without angina pectoris Hyperlipidemia, unspecified Chronic embolism and thrombosis of unspecified vein Encounter for adjustment or management of cardiac device documented in this encounter Care Teams Correspondence Section Supervisor Relationship Specialty Start Date End Date Demetrius Meeks MD [address] [place] [address] PCP - General Internal Medicine 06/15/24 documented as of this encounter
--- OUTSIDE RECORDS SUMMARY | 2025-01-02 16:38 | XMS_ITS | Encounter Summary ---
Author Organization [facility] Address [address] [place] [address] Care Team Providers Care Technology Integration Specialist Name Role Phone Demetrius Meeks MD Primary Care Provider + [phone] Encounter Details Date Type Department Care Team (Late st Contact Info) Description 09/20/2024 Lab Requisition [facility] - Main Lab [address] [facility] [place] [phone] Maura Ribera MD [address] [id number] Type 2 diabetes mellitus without complications (CMS/HCC V24, CMS/HCC V28); Hyperlipidemia, unspecified; 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; Acute embolism and thrombosis of unspecified deep veins of unspecified lower extremity (CMS/HCC V24, CMS/HCC V28); Vitamin D deficiency, unspecified Social History Tobacco Use Types Packs/Day Years [...] Description 06/12/2025 10:30 AM EST Ancillary Procedure [facility] [address] [place] [address] documented as of this encounter Procedures Procedure Name Priority Date/Time Associated Diagnosis Comments VITAMIN D 25 HYDROXY Routine 09/20/2024 7:25 AM EDT Type 2 diabetes mellitus without complications (CMS/HCC V24, CMS/HCC V28) Hyperlipidemia, unspecified 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 Acute embolism and thrombosis of unspecified deep veins of unspecified lower extremity (CMS/HCC V24, CMS/HCC V28) Vitamin D deficiency, unspecified COMPLETE BLOOD COUNT Routine 09/20/2024 7:25 AM EDT Type 2 diabetes mellitus without complications (CMS/HCC V24, CMS/HCC V28) Hyperlipidemia, unspecified 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 Acute embolism and thrombosis of unspecified deep veins of unspecified lower extremity (CMS/HCC V24, CMS/HCC V28) Vitamin D deficiency, unspecified MAGNESIUM Routine 09/20/2024 7:25 AM EDT Type 2 diabetes mellitus without complications (CMS/HCC V24, CMS/HCC V28) Hyperlipidemia, unspecified 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 Acute embolism and thrombosis of unspecified deep veins of unspecified lower extremity (CMS/HCC V24, CMS/HCC V28) Vitamin D deficiency, unspecified FOLATE Routine 09/20/2024 7:25 AM EDT Type 2 diabetes mellitus without complications (CMS/HCC V24, CMS/HCC V28) Hyperlipidemia, unspecified 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 Acute embolism and thrombosis of unspecified deep veins of unspecified lower extremity (CMS/HCC V24, CMS/HCC V28) Vitamin D deficiency, unspecified VITAMIN B12 Routine 09/20/2024 7:25 AM EDT Type 2 diabetes mellitus without complications (CMS/HCC V24, CMS/HCC V28) Hyperlipidemia, unspecified 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 Acute embolism and thrombosis of unspecified deep veins of unspecified lower extremity (CMS/HCC V24, CMS/HCC V28) Vitamin D deficiency, unspecified COMPREHENSIVE METABOLIC PANEL Routine 09/20/2024 7:25 AM EDT Type 2 diabetes mellitus without complications ([facility] V24, [facility] V28) Hyperlipidemia, unspecified 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 Acute embolism and thrombosis of unspecified deep veins of unspecified lower extremity ([facility] V24, [facility] V28) Vitamin D deficiency, unspecified documented in this encounter Results * (ABNORMAL) Vitamin D 25 hydroxy (09/20/2024 7:25 AM EDT) Pathologist [facility] Vit D, 25-Hydroxy 29.1(L) 30.0 - 80.0 ng/mL LAB CHEMISTRY METHOD 09/20/2024 11:43 AM EDT [facility] Blood Venous blood specimen / Unknown Venipuncture / Unknown 09/20/2024 7:25 AM EDT 09/20/2024 9:34 AM EDT Maura Ribera MD LAB BLOOD ORDERABLES Fin al Result Performing Organization Address City/[facility]/ZIP Co de Phone Number [facility] [address] [place] [address], * (ABNORMAL) Folate (09/20/2024 7:25 AM EDT) [facility] Folate 18.1(H) 2.8 - 17.0 ng/ml LAB CHEMISTRY METHOD 09/20/2024 10:37 AM EDT [facility] Blood Venous blood specimen / Unknown Venipuncture / Unknown 09/20/2024 7:25 AM EDT 09/20/2024 9:34 AM EDT Maura Ribera MD LAB BLOOD ORDERABLES Fin al Result Performing Organization Address City/[facility]/ZIP Co de Phone Number [facility] [address] [place] [address], * Magnesium (09/20/2024 7:25 AM EDT) Pathologist [facility] Magnesium 2.1 1.9 - 2.6 mg/dL LAB CHEMISTRY METHOD 09/20/2024 10:14 AM EDT [facility] Blood Venous blood specimen / Unknown Venipuncture / Unknown 09/20/2024 7:25 AM EDT 09/20/2024 9:34 AM EDT Maura Ribera MD LAB BLOOD ORDERABLES Fin al Result [facility] [address] [place] [address], [place] [phone] * Vitamin B12 (09/20/2024 7:25 AM EDT) Pathologist [facility] Vitamin B-12 497 250 - 900 pcg/mL LAB CHEMISTRY METHOD 09/20/2024 10:37 AM EDT [facility] Blood Venous blood specimen / Unknown Venipuncture / Unknown 09/20/2024 7:25 AM EDT 09/20/2024 9:34 AM EDT Maura Ribera MD LAB BLOOD ORDERABLES Fin al Result [facility] [address] [place] [address], [place] [phone] * (ABNORMAL) Comprehensive metabolic panel (09/20/2024 7:25 AM EDT) [facility] Sodium 143 133 - 145 mmol/L LAB CHEMISTRY METHOD 09/20/2024 10:37 AM EDT [facility] Potassium 4.4 3.5 - 5.5 mmol/L LAB CHEMISTRY METHOD 09/20/2024 10:37 AM EDT [facility] Chloride 108 96 - 110 mmol/L LAB CHEMISTRY METHOD 09/20/2024 10:37 AM [facility] CO2 26 21 - 32 mmol/L LAB CHEMISTRY METHOD 09/20/2024 10:37 AM [facility] Anion Gap 9 3 - 11 LAB CHEMISTRY METHOD 09/20/2024 10:37 AM [facility] Glucose 104(H) 70 - 100 mg/dL LAB CHEMISTRY METHOD 09/20/2024 10:37 AM [facility] BUN 18 5 - 25 mg/dL LAB CHEMISTRY METHOD 09/20/2024 10:37 AM [facility] Creatinine 0.70 0.70 - 1.30 mg/dL LAB CHEMISTRY METHOD 09/20/2024 10:37 AM [facility] eGFR 92 >=60 mL/min/1. 73m2 LAB CHEMISTRY METHOD 09/20/2024 10:37 AM [facility] Comment:Calculation based on the Chronic Kidney Disease Epidemiology Collaboration (CKD-EPI) equation refit without adjustment for race. BUN/Creatinine Ratio 25.7 LAB CHEMISTRY METHOD 09/20/2024 10:37 AM [facility] Calcium 8.6 8.5 - 10.5 mg/dL LAB CHEMISTRY METHOD 09/20/2024 10:37 AM [facility] AST (SGOT) 54(H) 10 - 42 unit/L LAB CHEMISTRY METHOD 09/20/2024 10:37 AM [facility] ALT (SGPT) 18 10 - 60 unit/L LAB CHEMISTRY METHOD 09/20/2024 10:37 AM [facility] Alkaline Phosphatase 76 42 - 121 unit/L LAB CHEMISTRY METHOD 09/20/2024 10:37 AM [facility] Total Protein 5.7(L) 6.0 - 8.0 g/dL LAB CHEMISTRY METHOD 09/20/2024 10:37 AM [facility] Albumin 2.7(L) 3.2 - 5.0 g/dL LAB CHEMISTRY METHOD 09/20/2024 10:37 AM EDT [facility] Total Bilirubin 1.6(H) 0.0 - 1.4 mg/dL LAB CHEMISTRY METHOD 09/20/2024 10:37 AM T [facility] Blood Venous blood specimen / Unknown Venipuncture / Unknown 09/20/2024 7:25 AM EDT 09/20/2024 9:34 AM EDT us Maura Ribera MD LAB BLOOD ORDERABLES Fin al Result [facility] [address] [place] [address], * (ABNORMAL) Complete blood count (09/20/2024 7:25 AM EDT) WBC 8.6 4.8 - 10.8 K/mcL LAB HEMETOLOGY METHOD 09/20/2024 9:54 AM [facility] RBC 2.70(L) 4.50 - 5.50 M/mcL LAB HEMETOLOGY METHOD 09/20/2024 9:54 AM [facility] Hemoglobin 8.7(L) 13.5 - 17.5 g/dL LAB HEMETOLOGY METHOD 09/20/2024 9:54 AM [facility] Hematocrit 27.7(L) 42.0 - 54.0 % LAB HEMETOLOGY METHOD 09/20/2024 9:54 AM [facility] MCV 102.2(H) 79.0 - 98.0 FL LAB HEMETOLOGY METHOD 09/20/2024 9:54 AM [facility] MCH 32.1(H) 27.0 - 32.0 pcg LAB HEMETOLOGY METHOD 09/20/2024 9:54 AM [facility] MCHC 31.4(L) 32.0 - 37.0 g/dL LAB HEMETOLOGY METHOD 09/20/2024 9:54 AM EDT [facility] RDW 14.7 11.0 - 15.0 % LAB HEMETOLOGY METHOD 09/20/2024 9:54 AM EDT [facility] Platelets 306 130 - 400 K/mcL [facility] 09/20/2024 9:54 AM EDT [facility] MPV 10.0 7.0 - 11.0 FL LAB HEMETOLOGY METHOD 09/20/2024 9:54 AM EDT [facility] NRBC 0.0 <1.0 % [facility] METHOD 09/20/2024 9:54 AM EDT [facility] NRBC Absolute 0.00 <0.10 K/mcL LAB 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
== END 2025-01-02 15:49 | disposition home or self-care (01) ==
PROVIDERS: PCP Internal Medicine; Visit Provider Hospitalist
DX: I26.09 Other pulmonary embolism with acute cor pulmonale (principal); R29.6 Repeated falls; G20.A1 Parkinson's disease without dyskinesia, without mention of fluctuations
CPT/HCPCS: 99205

== ENCOUNTER → 2025-01-02 14:56 | Outpatient (BNVA) | payer MEDICARE, OTHER, SELFPAY | PROVIDERS: PCP Internal Medicine; Visit Provider Hospitalist | DX: I26.99 Other pulmonary embolism without acute cor pulmonale (principal); G20.A1 Parkinson's disease without dyskinesia, without mention of fluctuations; R29.6 Repeated falls | CPT/HCPCS: 99202 ==

== ENCOUNTER 2025-03-16 08:59 | Outpatient (AMB) | payer MEDICARE, OTHER, SELFPAY ==
[2025-03-16 09:02] VITALS: BP 110/64; PULSE 74; O2SAT 95; BMI 27.8
--- NOTE | 2025-03-16 09:02 | A.OFFVIS_ITS ---
Vital Signs 03/16/25 09:02 Height 5 ft 7 in Weight 177 lb 7.554 oz BMI 27.8 BP 110/64 Blood Pressure Location Lt brachial Position Sitting Pulse 74 Pulse Source Pulse Oximeter Pulse Oximetry (%) 95 Oxygen Delivery Method Room Air Intake Visit Reasons: Pulmonary embolism Fountain Pen Nibs Inspector Required: No Accompanied by: Daughter Allergies Sulfa (Sulfonamide Antibiotics) Allergy (Unknown, Verified 03/16/25 09:07) Unknown HPI Comments Details: The patient is an 85-year-old gentleman known history of Parkinson's. Apparently he was in his usual state health until back around the end of August when he started not feeling well. Apparently had falling hurt his leg. He was more sedentary. He ended up going to the hospital at [facility] we had a workup for stroke. No evidence of any stroke although the CTA of the neck did sweet pickled fruit maker what appeared to be a pulmonary emboli. Therefore he was called back to the hospital and had a formal CT scan PE protocol. I personally reviewed it. He had moderate degree of lot burden primarily in the right hemithorax more than the left. He also did undergo an echocardiogram demonstrating some RV strain suggesting a submassive PE. The patient has been on Eliquis. Unfortunately he has been falling because of the Parkinson's. Now he uses a walker. He had multiple falls and 1 resulting in a significant hematoma of his right thigh. He did have a CT scan of the thigh demonstrating the hematoma but also a slightly enlarged prostate. He was evaluated for prostate issues in the past. The patient also had colonoscopies. No evidence of any cancer that he is aware of. He had a filter placed at that time because he was taken off the Eliquis. Now he is back on the Eliquis in it I believe in January there be trying to remove the IVC filter. It is felt based on the fact that the patient had an injury to the leg that is likely that he developed a DVT and subsequently clot. Still was not clear 100% if this is a provoked or unprovoked event. However, he is high risk for falls and further bleeding and major bleeding while on the anticoagulation. The goal will be to try to treat the patient at least for 6 months unless the blood clots have not dissolved as of yet. He does have some dyspnea on exertion. Again demonstrating some right heart strain on his echo. The patient does have a family history of clotting as his mom had early strokes in her life. Will be reasonable to assess for hypercoagulable state at this time specially with other family members that may be also at risk. The patient will undergo a CTA he will continue the Eliquis for now the current dose and he will follow-up in a couple months. The hypercoagulable workup has been provided to the patient to do at [facility]. I am hopeful that the blood clots have resolved and the patient can have his filter taken off on the scheduled time. 03/16/2025 the patient is here for a pulmonary follow-up visit. Overall the patient has been doing well. He does use the walker and he has not had any falls which is reassuring. The patient did have his IVC filter removed which is also reassuring that was back in January. He is still on the Eliquis 5 mg twice a day and now has been about 6 months. Based on the fact that he does not have anymore blood clots we can consider either stopping the medication or having it. If the concern is higher that he potentially can clot then we should keep him on a small dose. My inclination is for him to stay on a small dose specially after having the IVC filter removed were that area could still be healing. Then after being on the 2.5 mg twice a day dose then we can reassess in the next 3-6 months to see about stopping it. Once he has a stopped we can follow his D-dimer to make sure that is not climbing. The patient also had blood work reassuring for any hypercoagulable states at least that we tested for. On the CAT scan I did personally reviewed he does have a 7 mm pulmonary nodule that will need follow-up in a year. The patient also has been using CPAP. He has been struggling with the CPAP mask. I did provide him with a F20 AirTouch small mask that he is going to try. He felt already comfortable as the foam is more comfortable. [facility] Therefore will request at this point a replacement CPAP for him since his machine is older than 10 years in his malfunctioning at this time making loud noises in affecting sleep. The patient will come back in 3 months with his new PAP therapy. He understands that if he is no longer active with his DME company DME request a sleep study and if that is the case will go ahead and is order sleep study for him. PFSH Medical History (Updated 03/16/25 @ 18:32 by Adama Elias MD) Pulmonary nodule Falls Pulmonary emboli Parkinson disease Surgical History History of open heart surgery Social History Patient Tobacco Use Status: Former Tobacco user Review of Systems Const Denies chills, Denies fever(s) and Reports frequent falls Eyes Reports no additional complaints Card Reports no additional complaints, Denies syncope and Reports dyspnea on exertion Resp Denies cough, Reports dyspnea on exertion and Denies wheezing GI Denies abdominal pain and Denies heartburn Musc Reports abnormal gait Skin/Breast Reports wounds Neuro Reports abnormal gait, Denies syncope and Reports frequent falls Chepe/Lymph Reports no additional complaints Aller/Immun Denies wheezing Physical Exam Vital Signs: Last Vital Signs Pulse 74 03/16/25 09:02 BP 110/64 03/16/25 09:02 Pulse Ox 95 03/16/25 09:02 Oxygen Delivery Method Room Air 03/16/25 09:02 BMI result Body Mass Index 27.8 Const General: comfortable and no acute distress Orientation/consciousness: patient oriented x3 HEENT Head: Yes normocephalic Face and sinus: Yes normal facial exam Neck Neck: Yes normal visual inspection, Yes full ROM and Yes trachea midline Chest Chest palpation & inspection: normal inspection of the chest Resp Effort & Inspection: normal respiratory effort, able to speak in complete sentences and no respiratory distress Auscultation: clear to auscultation bilaterally Cardio Heart sounds: S1 normal heart sound present and S2 normal heart sound present GI Inspection: Yes normal to inspection Back/Spine/Pelvis Cervical Spine: normal cervical lordosis Thoracic/Lumbar Spine: thoracic and lumbar spine normal to inspection Skin Trauma: laceration (covered) Neuro General: patient oriented x3, gait normal, tone normal and moves all extremities Extrem General: Yes normal to inspection and Yes capillary refill normal Assessment & Plan Assessment & Plan (1) Pulmonary emboli: Comment: ?Provoked from leg injury/fall Code(s): I26.99 - Other pulmonary embolism without acute cor pulmonale Category: Medical Qualifiers: Acute cor pulmonale presence: with acute cor pulmonale Chronicity: acute Pulmonary embolism type: unspecified Qualified Code(s): I26.09 - Other pulmonary embolism with acute cor pulmonale (2) Parkinson disease: Code(s): G20 - Parkinson's disease Category: Medical (3) Pulmonary nodule: Code(s): R91.1 - Solitary pulmonary nodule Category: Medical Plan decrease Eliquis 2.5mg BID, we will re-evaluate during his F/U in 3 months CTA with no further clots, but 7mm nodule R lung S/P IVC removal Needs a replacement APAP, provied F20 Foam airtouch mask F/U 3 months Medications: New apixaban (Eliquis) 2.5 mg PO BID 60 tabs 6RF 30 days Coding Level of Care Code Est Pt Level 5 (23415) Complex EM visit Add On G2211 Diagnoses Acute pulmonary embolism with acute cor pulmonale, unspecified pulmonary embolism type I26.09 Acute cor pulmonale presence: with acute cor pulmonale Chronicity: acute Pulmonary embolism type: unspecified Parkinson disease G20 Pulmonary nodule R91.1 Time Spent (min) 50
--- OUTSIDE RECORDS SUMMARY | 2025-03-16 09:41 | XMS_ITS | Clinical Summary ---
Author Organization [facility] [employer] Address [address] [facility] [place] [address] Phone Care Team Providers Care Lead Installer Name Role Phone Demetrius Meeks MD Primary Care Provider [phone] Allergies Active Allergy Reactions Criticality Noted Date [...] time each day. Active CLONAZEPAM ORAL Take 0.5 mg by mouth at bedtime. Dose unknown Active [...] EVERY DAY 90 tablet 3 11/14/2024 Active famotidine (PEPCID) 20 mg tablet Take 1 tablet (20 mg total) by mouth if needed. Active apixaban (ELIQUIS) 5 mg tablet Take 1 tablet (5 mg total) by mouth 2 (two) times a day. 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 Parkinson's disease ([facility] V24, [facility] V28) 0 10/15/2020 Resolved Problems Problem Noted Date Diagnosed Date Resolved Date NSTEMI (non-ST elevated myoc ardial infarction) ([facility] V24, [facility] V28) 12/30/2022 0 10/27/2024 Encounters Date Type Department Care Team Description 03/01/2025 7:25 PM EDT Ancillary Procedure [facility] Cardiology [facility] [address] [place] [address] 01/05/2025 2:35 PM EDT Ancillary Procedure [facility] [address] [place] [address] 01/03/2025 Telephone [facility] [address] [place] [address] Barrie Gates MD from Last 3 Months Immunizations Immunization Administration Dates Next Due Influenza trivalent, 0.5mL ( Fluad) 65yo and older 02/28/2017,02/02/2016,02/10/2015 Influenza trivalent, 0.5mL, preservative free (Fluarix; FluLaval; Fluzone) ages 6mo and older (Afluria) 3 years and older 01/29/2020 Pneumococcal polysaccharide 23 valent (Pneumovax 23) 2yo and older 02/02/2016 Medical History Medical History Date Comments Hemorrhagic disorder due to extrinsic circulating anticoagulants ([facility] V24) Parkinson's disease ([facility] V24, [facility] V28) Traumatic hematoma of right thigh Family [...] Description 06/12/2025 10:30 AM EST Ancillary Procedure [facility] [address] [facility] [address] [place] [address] Health Maintenance Due Date Last Done Comments DTaP,Tdap,and Td Vaccines (1 - Tdap) 1961 Zoster Vaccines (1 of 2) 02/15/1992 Pneumococcal Vaccine: 50+ Years (2 of 2 - PCV) 02/01/2017 02/02/2016 RSV Immunization Adult Patients (1 - 1-dose 75+ series) 2017 Cholesterol Screening (Lipid Panel) 04/12/2022 Falls Risk Assessment 04/12/2022 Medicare Annual Wellness Visit 04/12/2022 Social Influencers of Health Screening 04/12/2022 Depression Screening 05/11/2024 COVID-19 Vaccine ( season) 2025 02/02/2025, 02/19/2024, 02/24/2022, Additional history exists Hypertension/CHF/CAD Annual BMP Blood Test 10/04/2025 10/04/2024, 09/26/2024, 09/20/2024 Influenza Vaccine Completed 02/02/2025, , 02/06/2023, Additional history exists HIB Vaccines Aged Out No longer eligi [...] this topic Medical Devices Implanted Type Area Mustanger Device Identifier Shelf Expiration Date Model / Serial / Lot Medt-Card Vidal Xt Dr Vega [id number] Implanted: (Quantity not on file) Cardiac Pacemaker [employer] - CARDIAC RHYTH-CRDM VIDAL XT DR VEGA [id number] / [id number] / Procedures Procedure Name Priority Date/Time Associated Diagnosis Comments CARDIAC DEVICE CHECK- REMOTE- MURJ Routine 03/01/2025 7:21 PM EDT CARDIAC DEVICE CHECK- REMOTE- MURJ Routine 01/05/2025 2:30 PM EDT BASIC METABOLIC PANEL Routine 10/04/2024 10:17 AM EDT Type 2 diabetes mellitus without complications (CMS/HCC V24, CMS/HCC V28) Atherosclerotic heart disease of flandre[place] coronary artery without angina pectoris Hyperlipidemia, unspecified Chronic embolism and thrombosis of unspecified vein from Last 3 Months or Most Recently Relevant to Health Maintenance Results * Cardiac device check - Remote- MURJ (03/01/2025 7:21 PM EDT) Only the most recent of2 resultswithin the time period is included. Date Time Interrogation Session [id number] CV DEVICE CHECK Type Interrogation Session Remote CV DEVICE CHECK Implantable Pulse Generator Mustanger MDT CV DEVICE CHECK Implantable Pulse Generator Type IPG CV DEVICE CHECK Implantable Pulse Generator Model Vidal XT DR MRI [id number] CV DEVICE CHECK Implantable Pulse Generator Serial Number [id number] CV DEVICE CHECK Implantable Pulse Generator Implant Date [id number] CV DEVICE CHECK Battery Remaining Longevity 107.0 CV DEVICE CHECK Battery Voltage 3.010 CV D EVICE CHECK Battery STUDENT [employer] COUNSELOR Trigger 2.625 CV DEVICE CHECK Battery Status Middle of Service CV DEVICE CHECK Elan Statistic RA Percent Paced 76.98 CV DEVICE CHECK Elan Statistic RV Percent Paced 10.17 CV DEVICE CHECK Atrial Tachy Statistic AT/AF Baltic Percent 0.00 CV DEVICE CHECK Lead Channel Sensing Intrinsic Amplitude 2.000 CV DEVICE CHECK Lead Channel Setting Sensing [...] DEVICE CHECK Lead Channel Sensing Intrinsic Amplitude 22.125 CV DEVICE CHECK Lead Channel Setting Sensing Sensitivity 0.90 CV DEVICE CHECK Lead Channel Impedance Value 684 CV DEVICE CHECK Lead Channel Pacing Threshold Amplitude 1.500 CV DEVICE CHECK Lead Channel Pacing Threshold Pulse Width 0.4 CV DEVICE CHECK Lead Channel RV Pacing Threshold Date 2025-02-27 CV DEVICE CHECK Lead Channel Setting Pacing Amplitude 3.000 CV DEVICE CHECK Lead Channel Setting Pacing [...] 6 CV DEVICE CHECK Date of Service 2025-03-14 CV DEVICE CHECK Anatomical Region Laterality Modality Device Interroga tion 02/27/2025 5:21 AM EDT Impressions 03/01/2025 3:18 PM EDT Normal Remote: No Events * Normal Device Function * Alerts or events: None * Battery: OK, 8.92 yrs * Sensing, impedance and thresholds reviewed * Programmed parameters reviewed * Presenting rhythm reviewed * Heart Rate Histograms reviewed * No significant changes noted Narrative Procedure Note Joe Lee MD - 03/01/2025 IMPRESSION: Normal Remote: No Events * Normal Device Function * Alerts or events: None * Battery: OK, 8.92 yrs * Sensing, impedance and thresholds reviewed * Programmed parameters reviewed * Presenting rhythm reviewed * Heart Rate Histograms reviewed * No significant changes noted Joe Lee MD CV IMPLANTABLE CARDIAC DEV ICE PROCEDURES Final Result * (ABNORMAL) Basic metabolic panel (10/04/2024 10:17 AM EDT) Sodium 138 133 - 145 mmol/L LAB CHEMISTRY METHOD 10/04/2024 2:19 PM [facility] Potassium 4.5 3.5 - 5.5 mmol/L LAB CHEMISTRY METHOD 10/04/2024 2:19 PM [facility] Chloride 107 96 - 110 mmol/L LAB CHEMISTRY METHOD 10/04/2024 2:19 PM [facility] CO2 27 21 - 32 mmol/L LAB CHEMISTRY METHOD 10/04/2024 2:19 PM [facility] Anion Gap 4 3 - 11 LAB CHEMISTRY METHOD 10/04/2024 2:19 PM [facility] Glucose 132(H) 70 - 100 mg/dL LAB CHEMISTRY METHOD 10/04/2024 2:19 PM [facility] BUN 20 5 - 25 mg/dL LAB CHEMISTRY METHOD 10/04/2024 2:19 PM [facility] Creatinine 0.94 0.70 - 1.30 mg/dL LAB CHEMISTRY METHOD 10/04/2024 2:19 PM [facility] eGFR 81 >=60 mL/min/1. 73m2 LAB CHEMISTRY METHOD 10/04/2024 2:[address] [facility] Comment:Calculation based on the Chronic Kidney Disease Epidemiology Collaboration (CKD-EPI) equation refit without adjustment for race. BUN/Creatinine Ratio 21.3 LAB CHEMISTRY METHOD 10/04/2024 2:[address] [facility] Calcium 9.6 8.5 - 10.5 mg/dL LAB CHEMISTRY METHOD 10/04/2024 2:[address] [facility] Blood Venous blood specimen / Unknown Venipuncture / Unknown 10/04/2024 10:17 AM EDT 10/04/2024 12:18 PM EDT us Maura Ribera MD LAB BLOOD ORDERABLES Fin al Result [facility] [address] [place] [address], from Last 3 Months or Most Recently Relevant to Health Maintenance Insurance [facility] [place] [id number] Care Teams Lead Installer Relationship Specialty Start Date End Date Demetrius Meeks MD [address] [place] [address] PCP - General Internal Medicine 06/15/24
--- OUTSIDE RECORDS SUMMARY | 2025-03-16 09:41 | XMS_ITS | Encounter Summary ---
Author Organization [facility] Address [address] [place] [address] Care Team Providers Care Hybrid Corn Breeder Name Role Phone Demetrius Meeks Qasim Primary Care Provider [phone] Encounter Details Date Type Department Care Team (Late st Contact Info) Description 05/27/2024 myChart Message [facility] Financial Clearance Department [address] [place] [id number] Neli Mccormack donepeziL (ARICEPT) 5 mg tablet [...] Description 03/16/2025 2:00 PM EST Office Visit [facility] [address] [place] [address] Parker Lantigua MD [address] [place] [address] 08/14/2025 1:00 PM EDT Office Visit [facility] [address] [place] [address] Alma Badillo, CUFF MAKER [address] [place], [place] [phone] documented as of this encounter Visit Diagnoses Not on filedocumented in this encounter Care Teams Hybrid Corn Breeder Relationship Specialty Start Date End Date Demetrius Meeks PCP - General Internal Medicine 12/05/21 documented as of this encounter
--- OUTSIDE RECORDS SUMMARY | 2025-03-16 09:41 | XMS_ITS | Data Portability ---
Author Organization Formerly [facility] [place], [employer] Address [address] [place] [address] Care Team Providers Care Fulfillment Associate Name Role Phone ASHU OLIVER Referring Provider Unavailable ASHU OLIVER Primary Care Provider Assessment Encounter Date Assessment Date Assessment LastModified by Organization Details LastModified Time 02/12/2021 02/12/2021 IMPRESSION: Parkinson's disease, with onset of left-sided tremor and gait abnormality leg cramps and cramps writing ~2017, partial improvement in 2019 with Sinemet with previous neurologist, now with some intermittent breakthrough left hand tremor, cramped handwriting. There is also a short fuse that has developed in recent years. Our patient wishes for me to take over neurological management in the context of Parkinson's disease diagnosis. I am happy to do this. Although his symptoms are predominantly handled by his current carbidopa/levodop a regimen, 1 tablet 3 times a day, residual parkinsonism is evident and there is some asymmetry, worse on the left. With this and with his history, I think it quite likely that the diagnosis is correct. He mentions that he wonders what to do about days when his tremor is especially bad. Dopaminergic medication increase would be of uncertain benefit as the left hand tremor that I see seems an action tremor not a rest tremor. With Parkinson's disease, rest tremor is most typical and this may be fully treated by the carbidopa/levodop a. We can address this at another follow-up with a decision on whether to try increase (or an as needed dose) of carbidopa/levodop a anyway or to consider a medication for essential tremor which may coexist with Parkinson's disease. At the end of our consultation, the patient mentions that his is concerned about his ability to focus and pay attention, distinct from his short fuse. I ask for the patient to bring his to follow-up so we can address this concern Other issues are addressed as detailed in the plan below. PLAN Monty Hammer February 12, 2021 You (and especially your ) wonder about your short fuse that has emerged in recent years. We have discussed that change in mood for the worse can be part of Parkinson's disease as the disease process affects the parts of the brain that help keep mood steady just as it affects the parts of the brain that help keep movement steady. We discuss a small dose of Escitalopram and you decide to proceed. To help short fuse: Start escitalopram to help your mood according to these instructions: Lexapro (generic escitalopram) 5 mg tablet, 0.5 tab Every morning, one week, then 1.0 tab After as needed and tolerated. Please take this medication with food. Increase from one half tablet to one full tablet if your mood doesn't get better on one half tablet, and if you do not have side effects from the one half tablet. escitalopram may occasionally caused side effects of mild nausea and/or mild tiredness. Rarely, escitalopram can make your mood feel worse. If symptoms are mild, wait a few days to see if they go away. For nausea, try taking the medication with food. For tiredness, try taking the medication at night instead of morning. If symptoms are not mild, or do not go away, reduce to the previous dose at which there were no side effects. You wonder whether an exercise program that you might join at a local gym would slow down or improve symptoms that you notice from Parkinson's disease. There is some evidence that appropriate exercise can help keep your walking as normal as possible. I cannot say whether the exercises at the particular gym you have in mind might help. There are exercise programs focused for individuals with Parkinson's disease. In our area, [employer], which you can find on the Internet, does this well. A physical therapist may also give you home exercises. I suggest that you at least start with a physical therapist who can do this one-on-one. You decide on this as a start: Physical therapy to assess and treat mildly parkinsonian gait with in office and home exercises for balance and gait posture. [address] [place] [address] [phone] We have sent a referral. Still, you have to call to set up the initial consultation. Follow-up in 6 weeks. Please bring your who may be helpful in identifying and focusing on symptoms, including suboptimal attention and focus, that we may be able to help by changing management. wayne Not available 02/12/2021 14:41:29 03/27/2021 03/27/2021 IMPRESSION: Parkinson's disease, with onset of left-sided tremor and gait abnormality leg cramps and cramps writing ~2017, partial improvement in 2019 with Sinemet with previous neurologist, now with some intermittent breakthrough left hand tremor, cramped handwriting. There is also a short fuse that has developed in recent years. He would like to try escitalopram again. We discussed help from his for medication management and monitoring and he is happy to have this. We establish a regimen as detailed below. 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 It does not bother his enough to have him take another medication. It does not bother him at all the next day in terms of tiredness. He wants to know about the medication that might help and we discussed melatonin, the possible tiredness side effect if you take too much, the rare face flushing/heat that can occur after you take the medication in the evening, the fact that it is a natural occurring medication that is fairly benign. We discussed that behavior sleep disorder is a good example of why this is a disease of the family as it can bother the caregiver/sleepin g partner more than the patient. We discussed that if any flailing emerges where the sleeping partner is in danger of being hit then this is a more important reason for treating this. Sleepwalking would also be an important reason to treat. Possible ADHD as a distinct issue : February 12, 2021 discussion: His 's concern about his ability to focus and pay attention, distinct from his short fuse. We will address this at a follow-up. February 12, 2021 discussion: He mentions that he wonders what to do about days when his tremor is especially bad. Dopaminergic medication increase would be of uncertain benefit as the left hand tremor that I see seems an action tremor not a rest tremor. With Parkinson's disease, rest tremor is most typical and this may be fully treated by the carbidopa/levodop a. We can address this at another follow-up with a decision on whether to try increase (or an as needed dose) of carbidopa/levodop a anyway or to consider a medication for essential tremor which may coexist with Parkinson's disease. March 27, 2021: He states that should he develop problems from Parkinson's disease where he would need help in daily activities he would first turned to his . His , Imelda, understands and is quite okay with this. PLAN Monty Hammer March 27, 2021 SHORT FUSE Start escitalopram to help your mood according to these instructions: Lexapro (generic escitalopram) 5 mg tablet, 0.5 tab Every morning, one week, then 1.0 tab After as needed and tolerated. Please take this medication with food. Increase from one half tablet to one full tablet if your mood doesn't get better on one half tablet, and if you do not have side effects from the one half tablet. escitalopram may occasionally caused side effects of mild nausea and/or mild tiredness. Rarely, escitalopram can make your mood feel worse. If symptoms are mild, wait a few days to see if they go away. For nausea, try taking the medication with food. For tiredness, try taking the medication at night instead of morning. If symptoms are not mild, or do not go away, reduce to the previous dose at which there were no side effects. Medication for Parkinson's disease CONTINUE carbidopa/levodop a 25/100, 1 tab 3 times a day 90-day fly with 3 refills was given February 12, 2021 _ MEDICATION MANAGEMENT You and your already have an agreement that her reminding you about medications is just fine with you, not considered nagging at all. So that you remember your new medication I suggest: Getting a new weekly medication organizer with 4 slots (you need 3 slots and I do not believe 3 slot organizers exist but if they do that is fine). Fill this with your 3 times a day carbidopa levodopa, and with your Escitalopram in the morning. Please let your help with filling the organizer once a week to get familiar with the medication and to be present at each medication administration to have your back to make sure there is no mistake or forgetfulness. You (and especially your ) wonder about your short fuse that has emerged in recent years. We have discussed that change in mood for the worse can be part of Parkinson's disease as the disease process affects the parts of the brain that help keep mood steady just as it affects the parts of the brain that help keep movement steady. We discuss a small dose of Escitalopram and you decide to proceed. BALANCE CONTINUE: Physical therapy to assess and treat mildly parkinsonian gait with in office and home exercises [place] [address] , You wonder whether an exercise program that you might join at a local gym would slow down or improve symptoms that you notice from Parkinson's disease. There is some evidence that appropriate exercise can help keep your walking as normal as possible. You have joined a gym. I encourage you to continue your exercise there. I also encourage you to incorporate the exercises that the physical therapist is showing you into part of the workout that you do at the gym. Please remember the only other option that I have mentioned: [employer], a group that provides focused exercises for individuals with Parkinson's disease and who conduct classes throughout the [facility]. Follow-up in 6 weeks. Please bring your who may be helpful in identifying and focusing on symptoms, including suboptimal attention and focus, that we may be able to help by changing management. wayne Not available 03/27/2021 14:47:51 05/16/2021 05/16/2021 IMPRESSION: Parkinson's disease, with onset of left-sided tremor and gait abnormality leg cramps and cramps writing ~2017, partial improvement in 2019 with Sinemet with previous neurologist, now with some intermittent breakthrough left hand tremor, cramped handwriting. --Escitalopram 5 mg is helping short fuse that has developed in recent years. MOOD Escitalopram 5 mg helps ideally. He would like to try escitalopram again. We discussed help from his for medication management and monitoring and he is happy to have this. We establish a regimen as detailed below. 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 Perhaps that was not REM behavior sleep disorder and a mood driven issue. I will monitor. ATTENTION DIFFICULTIES: February 12, 2021 discussion: His 's concern about his ability to focus and pay attention, distinct from his short fuse. We will address this at a follow-up. TREMOR February 12, 2021 discussion: He mentions that he wonders what to do about days when his tremor is especially bad. Dopaminergic medication increase would be of uncertain benefit as the left hand tremor that I see seems an action tremor not a rest tremor. With Parkinson's disease, rest tremor is most typical and this may be fully treated by the carbidopa/levodop a. We can address this at another follow-up with a decision on whether to try increase (or an as needed dose) of carbidopa/levodop a anyway or to consider a medication for essential tremor which may coexist with Parkinson's disease. PROGNOSIS May 16, 2020: He asks what he should expect. We discussed that all individuals with Parkinson's disease eventually over the years Karolina their ability to walk and are wheelchair-bound. There is also a ventral reduction in ability to coordinate hand motion such as buttoning and at some point dressing. He has mild cognitive impairment. About 50% of individuals with Parkinson's disease develop more significant memory issues. Hallucinations in the late phase of the disease are also possible. RESEARCH May 16 2020: He asks if there is any research on Parkinson's disease. I direct him to clinical trials.gov. March 27, 2021: He states that should he develop problems from Parkinson's disease where he would need help in daily activities he would first turned to his . His , Imelda, understands and is quite okay with this. PLAN Monty Hammer March 27, 2021 SHORT FUSE CONTINUE escitalopram 1.0 tab daily. Supply converted to 90-day May 16, 2020 MEDICATION FOR PARKINSON'S DISEASE CONTINUE carbidopa/levodop a 25/100, 1 tab 3 times a day 90-day supply with 3 refills was given February 12, 2021 _ MEDICATION MANAGEMENT CONTINUE with medication organizer, with your helping with filling the organizer and with your being present at medication administration. BALANCE CONTINUE: Home exercises learned from physical therapy to assess and treat mildly parkinsonian gait with in office and home exercises [place] [address] , Your work on balance and other physical health directions with your link trainer maintenance worker at the gym you have joined 2020 Follow-up in 6 months. Please bring your . A future subject we may work on could be identifying suboptimal attention and focus that you have already mentioned, and that we may be able to help by changing management. wayne Not available 05/16/2021 13:09:02 11/14/2021 11/14/2021 IMPRESSION: Parkinson's disease, with onset of left-sided tremor and gait abnormality leg cramps and cramps writing ~2017, partial improvement in 2019 with Sinemet with previous neurologist, now with some intermittent breakthrough left hand tremor, cramped handwriting. --Escitalopram 5 mg is helping short fuse that has developed in recent years. --Melatonin gummy helping 75% with problems going to sleep because of restless mind, 50% with the resultant tiredness in the late afternoon the next day. TIREDNESS Increase melatonin gummy by just one quarter gummy. MOOD Escitalopram 5 mg, restarted March 2021, continues to help ideally. REM behavior sleep disorder; Escitalopram correlated with cessation of his yelling out in his sleepAnd current near cessation, one event every 2 weeks. Perhaps that was not REM behavior sleep disorder and a mood driven issue. I will monitor. ATTENTION DIFFICULTIES: February 12, 2021 discussion: His 's concern about his ability to focus and pay attention, distinct from his short fuse. MEMORY We will address this at a follow-up. TREMOR He only had one breakthrough tremor episode, for 5 minutes, over the 6 months May through November 14, 2021. He notices no wearing off of the medication before the next dose. We will make no changes. February 12, 2021 discussion: He mentions that he wonders what to do about days when his tremor is especially bad. Dopaminergic medication increase would be of uncertain benefit as the left hand tremor that I see seems an action tremor not a rest tremor. With Parkinson's disease, rest tremor is most typical and this may be fully treated by the carbidopa/levodop a. We can address this at another follow-up with a decision on whether to try increase (or an as needed dose) of carbidopa/levodop a anyway or to consider a medication for essential tremor which may coexist with Parkinson's disease. PROGNOSIS May 16, 2020: He asks what he should expect. We discussed that all individuals with Parkinson's disease eventually over the years Karolina their ability to walk and are wheelchair-bound. There is also a ventral reduction in ability to coordinate hand motion such as buttoning and at some point dressing. He has mild cognitive impairment. About 50% of individuals with Parkinson's disease develop more significant memory issues. Hallucinations in the late phase of the disease are also possible. RESEARCH May 16 2020: He asks if there is any research on Parkinson's disease. I direct him to clinical trials.gov. March 27, 2021: He states that should he develop problems from Parkinson's disease where he would need help in daily activities he would first turned to his . His , Imelda, understands and is quite okay with this. PLAN Monty Hammer November 14, 2021 --- SLEEP Increase your melatonin from one melatonin gummy to 1.25 Gummies to see if you can optimize from 75% to even better improvement of your ability to get to sleep and therefore optimize your reduced tiredness from 50%. SHORT FUSE CONTINUE escitalopram 5mg, 1.0 tab daily. Supply converted to 90-day May 16, 2020 MEDICATION FOR PARKINSON'S DISEASE CONTINUE carbidopa/levodop a 25/100, 1 tab 3 times a day 90-day supply with 3 refills was given February 12, 2021 _ MEDICATION MANAGEMENT CONTINUE with medication organizer, with your helping with filling the organizer and with your being present at medication administration. BALANCE RESTART : Home exercises learned from physical therapy to assess and treat mildly parkinsonian gait with in office and home exercises for balance and gait posture. [address] [place] [address] , [phone] Please do these balance exercises at least once a day. Three times a day would be optimal for slowing down any emerging imbalance that could cause a fall and serious injury. Your work on balance and other physical health directions with your link trainer maintenance worker at the gym you have joined 2020 Follow-up in 6 months. Please bring your . A future subject we may work on could be Worsening short-term memory; and identifying suboptimal attention and focus that you have already mentioned, and that we may be able to help by changing management. [email or web address] Not available 11/14/2021 13:38:26 Plan of Treatment Reminders Order Date Submit Date Provider Last Modified By Organization Details Last Modified Time Details Appointments None recorded. Lab None recorded. Referral neurologi c physical therapist referral - Physical therapy to assess and treat mildly parkinson ailyn gait with in office and home exercises for balance and gait posture. 2020 021 evin 1 [facility] [address] [place] [address] 3, [place], [address], 23:31:21 Procedures None recorded. Surgeries None recorded. Imaging None recorded. Medication Orders Lexapro 5 mg tablet 2021 022 [id number], [address] [place], [place], [phone], 13:37:46 carbidopa 25 mg-levodo pa 100 mg tablet 2021 022 [id number], [address], [place], [phone], 13:37:44 Lexapro 5 mg tablet 2021 022 [id number], [address], [place], [phone], 13:09:35 carbidopa 25 mg-levodo pa 100 mg tablet 2020 021 [id number], [address] [facility], [place], [place], [phone], 14:36:12 Patient TargetsNo targets recorded. Patient InstructionsNo instructions recorded. Reason for Referral Physical therapy to assess a nd treat mildly parkinsonian gait with in office and home exercises for balance and gait posture. Referring Physician: Keon Funez, Neurology, Encounter Date: 02/12/2021 Results Created Date Observation Date Name Description Value Unit Range Abnormal Flag Note LastModifiedBy Organization Detail LastModifiedTime Result Notes None recorded. Medical Equipment None Reported. Allergies No known drug allergies Medications Name Sig Start Date Stop Date Status Note LastModified by Organization Details LastModified Time celecoxib 200 mg capsule TAKE 1 CAPSULE BY MOUTH EVERY DAY active Not Available Not Available No t Available doxycyclin e hyclate 100 mg capsule TAKE 1 CAPSULE BY MOUTH TWICE DAILY active Not Available Not Available No t Available isosorbide mononitrat e ER 30 mg tablet,ext ended release 24 hr TAKE 1 TABLET BY MOUTH DAILY active Not Available Not Available No t Available tamsulosin 0.4 mg capsule TAKE 1 CAPSULE BY MOUTH EVERY DAY active Not Available Not Available No t Available lisinopril 10 mg tablet TK 1 T PO QD active Not Available Not Available No t Available omeprazole 20 mg capsule,de layed release TAKE 1 CAPSULE BY MOUTH TWICE DAILY active Not Available Not Available No t Available folic acid 1 mg tablet TAKE 1 TABLET BY MOUTH EVERY DAY active Not Available Not Available No t Available lisinopril 5 mg tablet TAKE 1 TABLET BY MOUTH EVERY DAY active Not Available Not Available No t Available furosemide 20 mg tablet TAKE 1 TABLET BY MOUTH EVERY DAY active Not Available Not Available No t Available carbidopa 25 mg-levodop a 100 mg tablet TAKE 1 TABLET BY MOUTH THREE TIMES DAILY 2021 active Not Available Not Available Not Avai lable fluticason e propionate 50 mcg/actuat ion nasal spray,susp ension SHAKE LIQUID AND USE 1 SPRAY IN EACH NOSTRIL TWICE DAILY active Not Available Not Available No t Available metformin ER 500 mg tablet,ext ended release 24 hr TAKE 1 TABLET BY MOUTH EVERY DAY active Not Available Not Available No t Available ezetimibe 10 mg tablet TAKE 1 TABLET BY MOUTH EVERY DAY active Not Available Not Available No t Available rosuvastat in 40 mg tablet TAKE 1 TABLET BY MOUTH EVERY DAY active Not Available Not Available No t Available Lexapro 5 mg tablet 1 TAB daily 2021 active Not Available Not Available Not Avai lable Pepcid active Not Available Not Availa ble Not Available omeprazole active Not Available Not Av ailable Not Available carbidopa active Carbidopa/ levodopa, no dosage indicated Not Available Not Available Not Available isosorbide active Not Available Not Av ailable Not Available metformin active Not Available Not Alejandra ilable Not Available Kimberly Low Dose Aspirin active Not Available Not Available Not Available PreviDent 5000 Booster Plus 1.1 % dental paste USE TO BRUSH TEETH TWICE DAILY active Not Available Not Available No t Available Vitals Date Recorded Respiratory rate Provider Name a nd Address Organization Details Last Updated DateTime 02/12/2021 12 /min [facility] 02/12/2021 13:10:13 Social History Question Answer Notes LastModified by [employer] Details LastModified Time Tobacco Smoking Status Former Smoker [facility] 02/12/2021 13:18:18 What Is Your Level Of Caffeine Consumption? Moderate 2 Cups Per Day [facility] Information not available 02/12/2021 What Is The Highest Grade Or Level Of School You Have Completed Or The Highest Degree You Have Received? [id number] [facility] Information not available 02/12/2021 Which Of Your Hands Is Dominant? Right [facility] [facility] Information not available 02/12/2021 Sex: Unknown Functional Status Question Answer Note LastModified by [employer] Details LastModified Time What is your level of alcohol consumption? Moderate 1 drink per day, 4-5 days per week [facility] Information not available 02/12/2021 Mental Status None recorded. Family History Nothing Reported. Medical History No medical history recorded. Past Encounters Encounter ID Performer Location Encounter Start Date Encounter Closed Date Diagnosis/Indication Diagnosis SNOMED-CT Code Diagnosis ICD10 Code Diagnosis IMO Codes Diagnosis Note [id number] Keon Funez MD [facility] [address] [place] [address] [place] [address] 02/12/2021 12:49:44 02/12/2021 16:35:36 Parkinson's disease 45518676 G20 Abnormal gait 26175168 R 26.81 [id number] Keon Funez MD [facility] [address] [place] [address] [place] [address] 03/27/2021 13:56:00 03/27/2021 14:59:41 Parkinson's disease 82104452 G20 Abnormal gait [id number] R 26.81 [id number] Keon Funez MD [facility] [address] [place] [address] [place] [address] 05/16/2021 12:19:54 05/16/2021 17:12:18 Parkinson's disease [id number] G20 Abnormal gait [id number] R 26.81 [id number] Keon Funez MD [address] [place] [address] 11/14/2021 12:29:17 11/14/2021 18:30:04 Parkinson's disease 89513500 G20 Abnormal gait 58188935 R 26.81 Health Concerns Section Related Observation LastModified by Organization Detai ls LastModified Time None Recorded Concern Status LastModified by Organization Details LastModified Time None Recorded Advance Directives Directive None Recorded Payers Insurance Date Sequence Insurance Name Policy Number Policy Smith Covered Member ID Smith Member ID Guarantor Name 03/10/2022 1 [place]ICARE [place]: Free & Clear SERVICES Monty Hammer [id number] Monty Hammer 03/10/2022 2 [facility] PLAN F (MEDICARE SUPPLEMENT) [id number] 2 Monty Jaquelin [id number] Monty Jaquelin Notes Date Note Type Note Provider Name and Address Organization Details Recorded Time 02/12/2021 text/html Parkinson's DiseaseReported by Patient He presents for initial neurology consultation for assessment and management of Parkinson's disease. He has previously been a patient of neurologist Dr. Edwardo Negrete who diagnosed him. He is unaccompanied although he has some questions that his has sent along with him. We reviewed the history from Dr. Negrete's chart note and he found it accurate. In late 2018, when he started with Dr. Negrete, he had had 2 years of symptoms of left hand tremor, small, cramped right-handed writing, worsened gait for which she had to pay more attention while ambulating, leg cramping, increased salivation and occasional coughing while eating. Sinemet 25/103 times a day helped all of the symptoms although not totally. He has continued without side effects to the Sinemet as long as he does not take it on an empty stomach. Since starting the Sinemet. The left hand tremor has intensified moderately. For instance, if he takes his wallet in his left hand the tremor makes it hard to hold a wall and steady enough. The tremor worsening is sporadic: He has good days and bad days with this tremor. His handwriting has worsened although it is also sporadic, good and bad days 50-50. On good days the handwriting is loose and elongated; on bad days it is cramped and small. There has not been worsening of his leg cramping. He only notices it about 3 or 4 nights per month. He has notorious problems with taking his medications on time. 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 His is his guardian trying to help him remember his medication. With this, he estimates he takes all 3 doses about 27 out of 30 days of an average month. He does not notice any profound wearing off between doses when he does take all 3 doses. His mood has changed over the 4 years since he has had parkinsonian symptoms. This is one of his 's questions: What about his short fuse? His ability to get to sleep is good on some nights, not on others. There is no problem with restless legs and there never has been (his has restless legs). Some nights he just cannot get comfortable, physically. It is not an issue with his mind not wanting to stop. Most nights he stays asleep once he gets to sleep. He wakes refreshed and he credits his use of CPAP religiously for many years. His noticed that he acts out his dreams only occasionally, perhaps 6 times a year. Tamsulosin has helped bladder leakage that emerged at some point in the past several years and he has no side effects from tamsulosin. He has developed a problem of not remembering names, them just being on the tip of his tongue, even with someone who is quite well known to him. He has no other issues with his memory. Keon Funez MD [address] [place] [address] [place], [phone], [facility] 02/12/2021 14:41:57 03/27/2021 text/html Parkinson's DiseaseReported by Patient Follow up of Parkinson's disease. He has previously been a patient of neurologist Dr. Edwardo Negrete who diagnosed him. He is accompanied by his Imelda Hammer. Since February 12, 2021 neurology follow-up encounter, has not been taking the Escitalopram 5 mg. He explains,: I am a noncompliant SOB. He then further explains that he started taking it every evening. It was in a bottle separate from his carbidopa levodopa. He remembered the carbidopa levodopa but not the Escitalopram.Separate ly, he notes that he has episodes of yelling out in his sleep. He sleeps together in the same room with his who tells him of this. She says it happens about 3 times a week. It disturbs her a little. She tells him the next morning so he knows about it. He does not sleep any worse because of these events. Presenting symptomatology is reviewed from initial neurology consultation February 12, 2021:We reviewed the history from Dr. Negrete's chart note and he found it accurate. In late 2018, when he started with Dr. Negrete, he had had 2 years of symptoms of left hand tremor, small, cramped right-handed writing, worsened gait for which she had to pay more attention while ambulating, leg cramping, increased salivation and occasional coughing while eating. Sinemet 25/103 times a day helped all of the symptoms although not totally. He has continued without side effects to the Sinemet as long as he does not take it on an empty stomach. Since starting the Sinemet. The left hand tremor has intensified moderately. For instance, if he takes his wallet in his left hand the tremor makes it hard to hold a wall and steady enough. The tremor worsening is sporadic: He has good days and bad days with this tremor. His handwriting has worsened although it is also sporadic, good and bad days 50-50. On good days the handwriting is loose and elongated; on bad days it is cramped and small. There has not been worsening of his leg cramping. He only notices it about 3 or 4 nights per month. He has notorious problems with taking his medications on time. 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 His is his guardian trying to help him remember his medication. With this, he estimates he takes all 3 doses about 27 out of 30 days of an average month. He does not notice any profound wearing off between doses when he does take all 3 doses. His mood has changed over the 4 years since he has had parkinsonian symptoms. This is one of his 's questions: What about his short fuse? His ability to get to sleep is good on some nights, not on others. There is no problem with restless legs and there never has been (his has restless legs). Some nights he just cannot get comfortable, physically. It is not an issue with his mind not wanting to stop. Most nights he stays asleep once he gets to sleep. He wakes refreshed and he credits his use of CPAP religiously for many years. His noticed that he acts out his dreams only occasionally, perhaps 6 times a year. Tamsulosin has helped bladder leakage that emerged at some point in the past several years and he has no side effects from tamsulosin. He has developed a problem of not remembering names, them just being on the tip of his tongue, even with someone who is quite well known to him. He has no other issues with his memory. Keon Funez MD [address] [place] [address], [phone], [facility] 03/27/2021 14:48:08 05/16/2021 text/html Parkinson's DiseaseReported by Patient Follow up of Parkinson's disease. He has previously been a patient of neurologist Dr. Edwardo Negrete who diagnosed him. He is accompanied by his Imelda Hammer. Since March 27, 2021 neurology follow-up encounter, he has restarted escitalopram 5 mg daily. He notices no side effects. He is taking it faithfully. He finds it helpful, he is a little more relaxed. He is not prone to fly off the handle. His agrees that his mood is better.He has no new symptoms. He recounts that he continues occasional left hand episodes of either tremor or spasm. The tremor will come if he touches something lightly not if he weigher packing firmly.He has finished welding physical therapy for his gait. He is working at his new gym with a link trainer maintenance worker, also on his gait. He feels that his walking is better and feels good. He reports no falls.He is getting to sleep well most of the time unless he is thinking about something for a court matter the next day. He has never had restless legs.He has gotten a new medication organizer with 4 slots and fills 3 of them with the 3 times a day carbidopa/levodopa and also with the Escitalopram. His helps him fill the medication organizer and is present at each administration now.Yelling out in his sleep that his has noticed about 3 times a week has resolved since starting the escitalopram. Interim his treatment from March 27, 2021 is reviewed:Since February 12, 2021 neurology follow-up encounter, has not been taking the Escitalopram 5 mg. He explains,: I am a noncompliant SOB. He then further explains that he started taking it every evening. It was in a bottle separate from his carbidopa levodopa. He remembered the carbidopa levodopa but not the Escitalopram.Separate ly, he notes that he has episodes of yelling out in his sleep. He sleeps together in the same room with his who tells him of this. She says it happens about 3 times a week. It disturbs her a little. She tells him the next morning so he knows about it. He does not sleep any worse because of these events. Presenting symptomatology is reviewed from initial neurology consultation February 12, 2021:We reviewed the history from Dr. Negrete's chart note and he found it accurate. In late 2018, when he started with Dr. Negrete, he had had 2 years of symptoms of left hand tremor, small, cramped right-handed writing, worsened gait for which she had to pay more attention while ambulating, leg cramping, increased salivation and occasional coughing while eating. Sinemet 25/103 times a day helped all of the symptoms although not totally. He has continued without side effects to the Sinemet as long as he does not take it on an empty stomach. Since starting the Sinemet. The left hand tremor has intensified moderately. For instance, if he takes his wallet in his left hand the tremor makes it hard to hold a wall and steady enough. The tremor worsening is sporadic: He has good days and bad days with this tremor. His handwriting has worsened although it is also sporadic, good and bad days 50-50. On good days the handwriting is loose and elongated; on bad days it is cramped and small. There has not been worsening of his leg cramping. He only notices it about 3 or 4 nights per month. He has notorious problems with taking his medications on time. 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 His is his guardian trying to help him remember his medication. With this, he estimates he takes all 3 doses about 27 out of 30 days of an average month. He does not notice any profound wearing off between doses when he does take all 3 doses. His mood has changed over the 4 years since he has had parkinsonian symptoms. This is one of his 's questions: What about his short fuse? His ability to get to sleep is good on some nights, not on others. There is no problem with restless legs and there never has been (his has restless legs). Some nights he just cannot get comfortable, physically. It is not an issue with his mind not wanting to stop. Most nights he stays asleep once he gets to sleep. He wakes refreshed and he credits his use of CPAP religiously for many years. His noticed that he acts out his dreams only occasionally, perhaps 6 times a year. Tamsulosin has helped bladder leakage that emerged at some point in the past several years and he has no side effects from tamsulosin. He has developed a problem of not remembering names, them just being on the tip of his tongue, even with someone who is quite well known to him. He has no other issues with his memory. Keon Funez MD [address] [place] [address] [place], [phone], [facility] 05/16/2021 13:09:58 11/14/2021 text/html Parkinson's DiseaseReported by Patient Follow up of Parkinson's disease. He has previously been a patient of neurologist Dr. Edwardo Negrete who diagnosed him. He is accompanied by his Imelda Hammer. Since May 16, 2021 neurology follow-up encounter, his mood remains good on escitalopram 5 mg that he restarted March 27, 2021.His main problem has been trouble falling asleep starting shortly after that appointment, followed shortly after by tiredness during the day and napping in the late afternoon. His trouble falling asleep has no physical correlation, restless legs or other. It might be related to thinking about things. He addressed this with melatonin Gummies starting ~August 2021. This has benefited him so that his ability to fall asleep is 75% back to his previous baseline of always falling asleep immediately; his tiredness is about 50% better; his napping is better so that he has not napped over the past week. His tiredness has always emerged in the mid/late afternoon. Throughout all of this he has woken refreshed. 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 There has been one exception about 2 weeks ago when he had a 5-minute shaking episode. He remembers no correlation of tiredness, pain, recent vigorous activity or emotional issue. He took an extra carbidopa/levodopa. We discussed that resolution within 5 minutes does not suggest that the carbidopa/levodopa was involved in the benefit. Parkinson's disease can sometimes have fluctuations without clear trigger.He continues to walk without falling. He has stopped doing his balance exercises. I recommended that he restart at least once a day, ideally three times a day.He hurt his back in ~early August 2021, he thinks from the vigor of his training regimen with a link trainer maintenance worker at the gym. He stopped that regimen and took Celebrex for about 10 days. The back pain resolved. He has restarted his training regimen but at a more modest intensity.His thinks his memory is a little worse, short-term memory mainly and the patient agrees. She continues monitoring his medication and being there at every administration. He is driving without any problems. Presenting symptomatology is reviewed from initial neurology consultation February 12, 2021:We reviewed the history from Dr. Negrete's chart note and he found it accurate. In late 2018, when he started with Dr. Negrete, he had had 2 years of symptoms of left hand tremor, small, cramped right-handed writing, worsened gait for which she had to pay more attention while ambulating, leg cramping, increased salivation and occasional coughing while eating. Sinemet 25/103 times a day helped all of the symptoms although not totally. He has continued without side effects to the Sinemet as long as he does not take it on an empty stomach. Since starting the Sinemet. The left hand tremor has intensified moderately. For instance, if he takes his wallet in his left hand the tremor makes it hard to hold a wall and steady enough. The tremor worsening is sporadic: He has good days and bad days with this tremor. His handwriting has worsened although it is also sporadic, good and bad days 50-50. On good days the handwriting is loose and elongated; on bad days it is cramped and small. There has not been worsening of his leg cramping. He only notices it about 3 or 4 nights per month. He has notorious problems with taking his medications on time. 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 His is his guardian trying to help him remember his medication. With this, he estimates he takes all 3 doses about 27 out of 30 days of an average month. He does not notice any profound wearing off between doses when he does take all 3 doses. His mood has changed over the 4 years since he has had parkinsonian symptoms. This is one of his 's questions: What about his short fuse? His ability to get to sleep is good on some nights, not on others. There is no problem with restless legs and there never has been (his has restless legs). Some nights he just cannot get comfortable, physically. It is not an issue with his mind not wanting to stop. Most nights he stays asleep once he gets to sleep. He wakes refreshed and he credits his use of CPAP religiously for many years. His noticed that he acts out his dreams only occasionally, perhaps 6 times a year. Tamsulosin has helped bladder leakage that emerged at some point in the past several years and he has no side effects from tamsulosin. He has developed a problem of not remembering names, them just being on the tip of his tongue, even with someone who is quite well known to him. He has no other issues with his memory. Keon Funez MD [address] [place] [address] [place], [phone], [facility] 11/14/2021 13:38:33
--- OUTSIDE RECORDS SUMMARY | 2025-03-16 09:41 | XMS_ITS | Encounter Summary ---
Author Organization [facility] Address [address] [place] [address] Care Team Providers Care Med Asst Name Role Phone Demetrius Meeks MD Primary Care Provider [phone] Encounter Details Date Type Department Care Team (Late Contact Info) Description 10/03/2024 Lab Requisition [facility] - Main Lab [address] [facility] [place] [address] Maura Ribera MD [address] [facility] [address] [place], [place] [phone] Type 2 diabetes mellitus without complications (CMS/HCC V24, CMS/HCC V28); Atherosclerotic heart disease of [place] coronary artery without angina pectoris; Hyperlipidemia, unspecified; [...] Description 06/12/2025 10:30 AM EST Ancillary Procedure [facility] [address] [facility] [address] [place] [address] documented as of this encounter Procedures Procedure Name Priority Date/Time Associated Diagnosis Comments COMPLETE BLOOD COUNT Routine 10/04/2024 10:17 AM EDT Type 2 diabetes mellitus without complications [place] [place] [facility] [place]28[place] Atherosclerotic heart disease of [place] coronary artery without angina pectoris Hyperlipidemia, unspecified Chronic embolism and thrombosis of unspecified vein BASIC METABOLIC PANEL Routine 10/04/2024 10:17 AM EDT Type 2 diabetes mellitus without complications ([facility] [place]24, [facility] V28) Atherosclerotic heart disease of [place] coronary artery without angina pectoris Hyperlipidemia, unspecified Chronic embolism and thrombosis of unspecified vein documented in this encounter Results * (ABNORMAL) Basic metabolic panel (10/04/2024 10:17 AM EDT) Sodium 138 133 - 145 mmol/L LAB CHEMISTRY METHOD 10/04/2024 2:19 PM [facility] Potassium 4.5 3.5 - 5.5 mmol/L LAB CHEMISTRY METHOD 10/04/2024 2:19 PM [facility] Chloride 107 96 - 110 mmol/L LAB CHEMISTRY METHOD 10/04/2024 2:19 PM [facility] CO2 27 21 - 32 mmol/L LAB CHEMISTRY METHOD 10/04/2024 2:19 PM [facility] Anion Gap 4 3 - 11 LAB CHEMISTRY METHOD 10/04/2024 2:19 PM [facility] Glucose 132(H) 70 - 100 mg/dL LAB CHEMISTRY METHOD 10/04/2024 2:19 PM [facility] BUN 20 5 - 25 mg/dL LAB CHEMISTRY METHOD 10/04/2024 2:19 PM [facility] Creatinine 0.94 0.70 - 1.30 mg/dL LAB CHEMISTRY METHOD 10/04/2024 2:19 PM [facility] eGFR 81 >=60 mL/min/1. 73m2 LAB CHEMISTRY METHOD 10/04/2024 2:19 PM EDT [facility] Comment:Calculation based on the Chronic Kidney Disease Epidemiology Collaboration (CKD-EPI) equation refit without adjustment for race. BUN/Creatinine Ratio 21.3 LAB CHEMISTRY METHOD 10/04/2024 2:19 PM EDT [facility] Calcium 9.6 8.5 - 10.5 mg/dL LAB CHEMISTRY METHOD 10/04/2024 2:19 PM EDT [facility] Blood Venous blood specimen / Unknown Venipuncture / Unknown 10/04/2024 10:17 AM EDT 10/04/2024 12:18 PM EDT us Maura Ribera MD LAB BLOOD ORDERABLES Fin al Result [facility] [address] [place] [address], * (ABNORMAL) Complete blood count (10/04/2024 10:17 AM EDT) WBC 6.5 4.8 - 10.8 K/mcL LAB HEMETOLOGY METHOD 10/04/2024 1:15 PM EDT [facility] RBC 3.60(L) 4.50 - 5.50 M/mcL LAB HEMETOLOGY METHOD 10/04/2024 1:15 PM T [facility] Hemoglobin 12.1(L) 13.5 - 17.5 g/dL LAB HEMETOLOGY METHOD 10/04/2024 1:15 PM EDT [facility] Hematocrit 39.4(L) 42.0 - 54.0 % LAB HEMETOLOGY METHOD 10/04/2024 1:15 PM EDT [facility] MCV 108.2(H) 79.0 - 98.0 FL LAB HEMETOLOGY METHOD 10/04/2024 1:15 PM EDT [facility] MCH 33.2(H) 27.0 - 32.0 pcg LAB HEMETOLOGY METHOD 10/04/2024 1:15 PM EDT [facility] MCHC 30.7(L) 32.0 - 37.0 g/dL LAB HEMETOLOGY METHOD 10/04/2024 1:15 PM EDT [facility] RDW 17.2(H) 11.0 - 15.0 % LAB HEMETOLOGY METHOD 10/04/2024 1:15 PM EDT [facility] Platelets 374 130 - 400 K/mcL LAB HEMETOLOGY METHOD 10/04/2024 1:15 PM EDT [facility] MPV 9.7 7.0 - 11.0 FL LAB HEMETOLOGY METHOD 10/04/2024 1:15 PM EDT [facility] NRBC 0.0 <1.0 % LAB HEMETOLOGY METHOD 10/04/2024 1:15 PM EDT [facility] NRBC Absolute 0.00 <0.10 K/mcL LAB HEMETOLOGY METHOD 10/04/2024 1:15 PM EDT [facility] Blood Venous blood specimen / Unknown Venipuncture / Unknown 10/04/2024 10:17 AM EDT 10/04/2024 12:21 PM EDT us Maura Ribera MD LAB BLOOD ORDERABLES Fin al Result [facility] [address] [place] [address], documented in this encounter Visit Diagnoses Diagnosis Type 2 diabetes mellitus without complications (CMS/HCC V24, CMS/HCC V28) Atherosclerotic heart disease of [place] coronary artery without angina pectoris Hyperlipidemia, unspecified Chronic embolism and thrombosis of unspecified vein Encounter for adjustment or management of cardiac device documented in this encounter Care Teams Med Asst Relationship Specialty Start Date End Date Demetrius Meeks MD [address] [place] [address] PCP - General Internal Medicine 06/15/24 documented as of this encounter
--- OUTSIDE RECORDS SUMMARY | 2025-03-16 09:41 | XMS_ITS | Encounter Summary ---
Author Organization [facility] Address [address] [place] [address] Care Team Providers Care Van Cdl Driver Name Role Phone Demetrius Meeks Qasim Primary Care Provider [phone] Encounter Details Date Type Department Care Team (Late st Contact Info) Description 02/20/2022 myChart Message [facility] [address] [place] [phone] Parker Lantigua MD [address] [place] [phone] Updates Social History Tobacco Use Types Packs/Day [...] Description 03/16/2025 2:00 PM EST Office Visit [facility] [address] [place] [address] Parker Lantigua MD [address] [place] [address] [phone] 08/14/2025 1:00 PM EDT Office Visit [facility] [address] [place], [place] [phone] Alma Badillo, CILNICAL SCIENTIST [address] [place], [place] [phone] documented as of this encounter Visit Diagnoses Not on filedocumented in this encounter Care Teams Van Cdl Driver Relationship Specialty Start Date End Date Demetrius Meeks PCP - General Internal Medicine 12/05/21 documented as of this encounter
--- OUTSIDE RECORDS SUMMARY | 2025-03-16 09:41 | XMS_ITS | Encounter Summary ---
Author Organization [facility] Address [address] [place] [address] Care Team Providers Care Sap Portal Consultant Name Role Phone Demetirus Meeks Primary Care Provider [phone] Encounter Details Date Type Department Care Team (Late st Contact Info) Description 04/24/2022 myChart Message [facility] [address] [place], [place] [phone] Parker Lantigua MD [address] [place] [address] Medication adjustment update Social History Tobacco Use [...] Description 03/16/2025 2:00 PM EST Office Visit [facility] [address] [place] [address] Parker Lantigua MD [address] [place] [address] 08/14/2025 1:00 PM EDT Office Visit [facility] Neurology [address] [address] Alma Badillo NP [address] [place] [address] documented as of this encounter Visit Diagnoses Not on filedocumented in this encounter Care Teams Sap Portal Consultant Relationship Specialty Start Date End Date Demetrius Meeks PCP - General Internal Medicine 12/05/21 documented as of this encounter
--- OUTSIDE RECORDS SUMMARY | 2025-03-16 09:41 | XMS_ITS | Encounter Summary ---
Author Organization [facility] Address [address] [place] [address] Care Team Providers Care Completion Manager Name Role Phone Demetrius Meeks MD Primary Care Provider + [phone] Encounter Details Date Type Department Care Team (Late Contact Info) Description 09/26/2024 Lab Requisition [facility] - Main Lab 299 [facility] [place] [address] Maura Ribera MD 819 [facility] 1 [place], [place] [phone] Type 2 diabetes mellitus without complications (CMS/HCC V24, CMS/HCC V28); Atherosclerotic heart disease of [place] coronary artery without angina pectoris; Hyperlipidemia, unspecified; [...] Description 06/12/2025 10:30 AM EST Ancillary Procedure [facility] [address] [facility] [address] [place] [address] documented as of this encounter Procedures Procedure Name Priority Date/Time Associated Diagnosis Comments COMPLETE BLOOD COUNT Routine 09/26/2024 5:45 AM EDT Type 2 diabetes mellitus without complications ([facility] V24, [facility] V28) Atherosclerotic heart disease of [place] coronary artery without angina pectoris Hyperlipidemia, unspecified Chronic embolism and thrombosis of unspecified vein BASIC METABOLIC PANEL Routine 09/26/2024 5:45 AM EDT Type 2 diabetes mellitus without complications ([facility] V24, [facility] V28) Atherosclerotic heart disease of [place] coronary artery without angina pectoris Hyperlipidemia, unspecified Chronic embolism and thrombosis of unspecified vein documented in this encounter Results * Basic metabolic panel (09/26/2024 5:45 AM EDT) Sodium 143 133 - 145 mmol/L LAB CHEMISTRY METHOD 09/26/2024 10:30 AM [facility] Potassium 4.2 3.5 - 5.5 mmol/L LAB CHEMISTRY METHOD 09/26/2024 10:30 AM [facility] Chloride 108 96 - 110 mmol/L LAB CHEMISTRY METHOD 09/26/2024 10:30 AM [facility] CO2 26 21 - 32 mmol/L LAB CHEMISTRY METHOD 09/26/2024 10:30 AM [facility] Anion Gap 9 3 - 11 LAB CHEMISTRY METHOD 09/26/2024 10:30 AM [facility] Glucose 84 70 - 100 mg/dL LAB CHEMISTRY METHOD 09/26/2024 10:30 AM [facility] BUN 16 5 - 25 mg/dL LAB CHEMISTRY METHOD 09/26/2024 10:30 AM [facility] Creatinine 0.76 0.70 - 1.30 mg/dL LAB CHEMISTRY METHOD 09/26/2024 10:30 AM [facility] eGFR 90 >=60 mL/min/1. 73m2 LAB CHEMISTRY METHOD 09/26/2024 10:30 AM EDT [facility] Comment:Calculation based on the Chronic Kidney Disease Epidemiology Collaboration (CKD-EPI) equation refit without adjustment for race. BUN/Creatinine Ratio 21.1 LAB CHEMISTRY METHOD 09/26/2024 10:30 AM T [facility] Calcium 8.9 8.5 - 10.5 mg/dL LAB CHEMISTRY METHOD 09/26/2024 10:30 AM T [facility] Blood Venous blood specimen / Unknown Venipuncture / Unknown 09/26/2024 5:45 AM EDT 09/26/2024 9:32 AM EDT us Maura Ribera MD LAB BLOOD ORDERABLES Fin al Result [facility] [address] [place] [address], * (ABNORMAL) Complete blood count (09/26/2024 5:45 AM EDT) WBC 8.6 4.8 - 10.8 K/mcL LAB HEMETOLOGY METHOD 09/26/2024 10:42 AM T [facility] RBC 3.10(L) 4.50 - 5.50 M/mcL LAB HEMETOLOGY METHOD 09/26/2024 10:42 AM [facility] Hemoglobin 10.1(L) 13.5 - 17.5 g/dL LAB HEMETOLOGY METHOD 09/26/2024 10:42 AM T [facility] Hematocrit 32.5(L) 42.0 - 54.0 % LAB HEMETOLOGY METHOD 09/26/2024 10:42 AM EDT [facility] MCV 105.9(H) 79.0 - 98.0 FL LAB HEMETOLOGY METHOD 09/26/2024 10:42 AM [facility] MCH 32.9(H) 27.0 - 32.0 pcg LAB HEMETOLOGY METHOD 09/26/2024 10:42 AM EDT [facility] MCHC 31.1(L) 32.0 - 37.0 g/dL LAB HEMETOLOGY METHOD 09/26/2024 10:42 AM [facility] RDW 17.0(H) 11.0 - 15.0 % LAB HEMETOLOGY METHOD 09/26/2024 10:42 AM EDT [facility] Platelets 419(H) 130 - 400 K/mcL LAB HEMETOLOGY METHOD 09/26/2024 10:42 AM EDT [facility] MPV 9.4 7.0 - 11.0 FL LAB HEMETOLOGY METHOD 09/26/2024 10:42 AM EDT [facility] NRBC 0.0 <1.0 % LAB HEMETOLOGY METHOD 09/26/2024 10:42 AM T [facility] NRBC Absolute 0.00 <0.10 K/mcL LAB HEMETOLOGY METHOD 09/26/2024 10:42 AM [facility] Blood Venous blood specimen / Unknown Venipuncture / Unknown 09/26/2024 5:45 AM EDT 09/26/2024 9:32 AM EDT us Maura Ribera MD LAB BLOOD ORDERABLES Fin al Result [facility] [address] [place] [address], documented in this encounter Visit Diagnoses Diagnosis Type 2 diabetes mellitus without complications (CMS/HCC V24, CMS/HCC V28) Atherosclerotic heart disease of [place] coronary artery without angina pectoris Hyperlipidemia, unspecified Chronic embolism and thrombosis of unspecified vein Encounter for adjustment or management of cardiac device documented in this encounter Care Teams Completion Manager Relationship Specialty Start Date End Date Demetrius Meeks MD [address] [place] [address] PCP - General Internal Medicine 06/15/24 documented as of this encounter
--- OUTSIDE RECORDS SUMMARY | 2025-03-16 09:41 | XMS_ITS | Clinical Summary ---
Author Organization [facility] Address [address] [place] [address] Care Team Providers Care Small Equipment Operator Name Role Phone Demetrius Meeks Primary Care Provider [phone] Allergies Active Allergy Reactions Criticality Noted Date Comments Sulfa (Sulfonamide Antibiotics) Rash Low 07/2020 Medications isosorbide mononitrate ER (IMDUR) 30 mg tablet Take 30 mg by mouth once a day. 12/16/2021 Active polyethylene glycol 3350 (MIRALAX ORAL) Take 17 g by mouth. 11/20/2022 Active melatonin 5 mg tablet,chewable Chew and swallow 5 mg by mouth nightly. Active aspirin (ASPIR-81 ORAL) Acti ve multivitamin (THERAGRAN) tablet Take 1 tablet by mouth once a day. Active rosuvastatin (CRESTOR) 20 mg tablet Take 20 mg by mouth once a day. Active famotidine (PEPCID) 20 mg tablet SMARTSI Tablet(s) By Mouth Twice Daily PRN 06/14/2024 Active carbidopa-levodo pa ER/CR (SINEMET ER/CR) 50-200 mg tablet Take 1 tablet by mouth nightly. At bedtime (9-10 PM) 90 tablet 3 08/11/2024 08/12/19 26 Active sertraline (ZOLOFT) 25 mg tablet TAKE 1 TABLET BY MOUTH EVERY NIGHT. 90 tablet 3 11/01/2024 Active carbidopa-levodo pa (SINEMET) 25-100 mg tablet TAKE 2 TABLETS BY MOUTH 4 TIMES A DAY AT 8 AM, 12 NOON, 4 PM, AND 8 PM 720 tablet 3 11/16/2024 Active midodrine (PROAMATINE) 5 mg tablet TAKE 2 TABLETS (10 MG TOTAL) BY MOUTH 2 (TWO) TIMES A DAY. 10 MG AT 8 AM AND 10 MG AT 2 PM 360 tablet 1 11/21/2024 Active rivastigmine (EXELON) 4.5 mg capsule Take 1 capsule (4.5 mg total) by mouth 2 times a day. 180 capsule 3 12/06/2024 12/07/19 26 Active clonazePAM (KlonoPIN) 0.5 mg tabletIndication s:REM sleep behavior disorder TAKE 1 TABLET (0.5 MG TOTAL) BY MOUTH NIGHTLY AT BEDTIME 90 tablet 1 12/23/2024 06/21/19 26 Active Active Problems Problem Noted Date Diagnosed [...] hypertension 10/15/2020 Coronary artery disease invo [place]ving [place] coronary artery of [place] heart without angina pectoris 10/15/2020 Parkinson's disease 11/07/2018 Heart disease 02/07/1991 Encounters Date Type Department Care Team Description 12/20/2024 Refill [facility] [address] [place] [address] Taryn Sanford MD REM sleep behavior disorder from Last 3 Months Family History Medical [...] Description 03/16/2025 2:00 PM EST Office Visit [facility] [address] [place] [address] Parker Lantigua MD [address] [place] [address] 08/14/2025 1:00 PM EDT Office Visit [facility] [address] [place] [address] Alma Badillo NP [address] [place] [address] Health Maintenance Due Date Last Done Comments [...] Annual Screening 05/11/2024 COVID-19 Vaccine ( season) 2025 02/19/2024, 02/24/2022, 09/10/2021, Additional history exists Influenza Vaccine (#1) 2025 , 02/06/2023, 02/11/2022, Additional history exists Fall Risk Screening 08/11/2025 08/11/2024 Basic Metabolic Panel 10/04/2025 10/04/2024 , 09/26/2024, 09/20/2024 Hepatitis B Vaccines Aged Out No long er eligible based on patient's age to complete this topic Insurance MEDICARE [facility] Care Teams Small Equipment Operator Relationship Specialty Start Date End Date Demetrius Meeks PCP - General Internal Medicine 12/05/21
--- OUTSIDE RECORDS SUMMARY | 2025-03-16 09:41 | XMS_ITS | Encounter Summary ---
Author Organization [facility] Address [address] [place] [address] Care Team Providers Care Car Pick Up Driver Name Role Phone Demetrius Meeks MD Primary Care Provider [phone] Encounter Details Date Type Department Care Team (Late st Contact Info) Description 09/20/2024 Lab Requisition [facility] - Main Lab 299 [facility] [place] [id number] Maura Ribera MD [address] [phone] Type 2 diabetes mellitus without complications (CMS/HCC V24, CMS/HCC V28); Hyperlipidemia, unspecified; Atherosclerotic heart disease of [place] coronary artery without angina pectoris; Acute embolism [...] Description 06/12/2025 10:30 AM EST Ancillary Procedure [facility] [place] [address] [place] [address] documented as of this encounter Procedures Procedure Name Priority Date/Time Associated Diagnosis Comments VITAMIN D 25 HYDROXY Routine 09/20/2024 7:25 AM EDT Type 2 diabetes mellitus without complications (CMS/HCC V24, CMS/HCC V28) Hyperlipidemia, unspecified Atherosclerotic heart disease of [place] coronary artery without angina pectoris Acute embolism and thrombosis of unspecified deep veins of unspecified lower extremity (CMS/HCC V24, CMS/HCC V28) Vitamin D deficiency, unspecified COMPLETE BLOOD COUNT Routine 09/20/2024 7:25 AM EDT Type 2 diabetes mellitus without complications (CMS/HCC V24, CMS/HCC V28) Hyperlipidemia, unspecified Atherosclerotic heart disease of [place] coronary artery without angina pectoris Acute embolism and thrombosis of unspecified deep veins of unspecified lower extremity (CMS/HCC V24, CMS/HCC V28) Vitamin D deficiency, unspecified MAGNESIUM Routine 09/20/2024 7:25 AM EDT Type 2 diabetes mellitus without complications (CMS/HCC V24, CMS/HCC V28) Hyperlipidemia, unspecified Atherosclerotic heart disease of [place] coronary artery without angina pectoris Acute embolism and thrombosis of unspecified deep veins of unspecified lower extremity (CMS/HCC V24, CMS/HCC V28) Vitamin D deficiency, unspecified FOLATE Routine 09/20/2024 7:25 AM EDT Type 2 diabetes mellitus without complications (CMS/HCC V24, CMS/HCC V28) Hyperlipidemia, unspecified Atherosclerotic heart disease of [place] coronary artery without angina pectoris Acute embolism and thrombosis of unspecified deep veins of unspecified lower extremity (CMS/HCC V24, CMS/HCC V28) Vitamin D deficiency, unspecified VITAMIN B12 Routine 09/20/2024 7:25 AM EDT Type 2 diabetes mellitus without complications (CMS/HCC V24, CMS/HCC V28) Hyperlipidemia, unspecified Atherosclerotic heart disease of [place] coronary artery without angina pectoris Acute embolism and thrombosis of unspecified deep veins of unspecified lower extremity (CMS/HCC V24, CMS/HCC V28) Vitamin D deficiency, unspecified COMPREHENSIVE METABOLIC PANEL Routine 09/20/2024 7:25 AM EDT Type 2 diabetes mellitus without complications ([facility] V24, [facility] V28) Hyperlipidemia, unspecified Atherosclerotic heart disease of [place] coronary artery without angina pectoris Acute embolism and thrombosis of unspecified deep veins of unspecified lower extremity ([facility] V24, [facility] V28) Vitamin D deficiency, unspecified documented in this encounter Results * (ABNORMAL) Vitamin D 25 hydroxy (09/20/2024 7:25 AM EDT) Pathologist [facility] Vit D, 25-Hydroxy 29.1(L) 30.0 - 80.0 ng/mL LAB CHEMISTRY METHOD 09/20/2024 11:43 AM EDT [facility] Blood Venous blood specimen / Unknown Venipuncture / Unknown 09/20/2024 7:25 AM EDT 09/20/2024 9:34 AM EDT Maura Ribera MD LAB BLOOD ORDERABLES Fin al Result Performing Organization Address City/[facility]/ZIP Co de Phone Number [facility] [address] [place] [address], * (ABNORMAL) Folate (09/20/2024 7:25 AM EDT) [facility] Folate 18.1(H) 2.8 - 17.0 ng/ml LAB CHEMISTRY METHOD 09/20/2024 10:37 AM EDT [facility] Blood Venous blood specimen / Unknown Venipuncture / Unknown 09/20/2024 7:25 AM EDT 09/20/2024 9:34 AM EDT Maura Ribera MD LAB BLOOD ORDERABLES Fin al Result Performing Organization Address City/[facility]/ZIP Co de Phone Number [facility] [address] [place] [address], * Magnesium (09/20/2024 7:25 AM EDT) Pathologist [facility] Magnesium 2.1 1.9 - 2.6 mg/dL LAB CHEMISTRY METHOD 09/20/2024 10:14 AM EDT [facility] Blood Venous blood specimen / Unknown Venipuncture / Unknown 09/20/2024 7:25 AM EDT 09/20/2024 9:34 AM EDT Maura Ribera MD LAB BLOOD ORDERABLES Fin al Result [facility] [address] [place] [address], [place] [phone] * Vitamin B12 (09/20/2024 7:25 AM EDT) Pathologist [facility] Vitamin B-12 497 250 - 900 pcg/mL LAB CHEMISTRY METHOD 09/20/2024 10:37 AM EDT [facility] Blood Venous blood specimen / Unknown Venipuncture / Unknown 09/20/2024 7:25 AM EDT 09/20/2024 9:34 AM EDT Maura Ribera MD LAB BLOOD ORDERABLES Fin al Result [facility] [address] [place] [address], [place] [phone] * (ABNORMAL) Comprehensive metabolic panel (09/20/2024 7:25 AM EDT) [facility] Sodium 143 133 - 145 mmol/L LAB CHEMISTRY METHOD 09/20/2024 10:37 AM EDT [facility] Potassium 4.4 3.5 - 5.5 mmol/L LAB CHEMISTRY METHOD 09/20/2024 10:37 AM EDT [facility] Chloride 108 96 - 110 mmol/L LAB CHEMISTRY METHOD 09/20/2024 10:37 AM [facility] CO2 26 21 - 32 mmol/L LAB CHEMISTRY METHOD 09/20/2024 10:37 AM [facility] Anion Gap 9 3 - 11 LAB CHEMISTRY METHOD 09/20/2024 10:37 AM [facility] Glucose 104(H) 70 - 100 mg/dL LAB CHEMISTRY METHOD 09/20/2024 10:37 AM [facility] BUN 18 5 - 25 mg/dL LAB CHEMISTRY METHOD 09/20/2024 10:37 AM [facility] Creatinine 0.70 0.70 - 1.30 mg/dL LAB CHEMISTRY METHOD 09/20/2024 10:37 AM [facility] eGFR 92 >=60 mL/min/1. 73m2 LAB CHEMISTRY METHOD 09/20/2024 10:37 AM [facility] Comment:Calculation based on the Chronic Kidney Disease Epidemiology Collaboration (CKD-EPI) equation refit without adjustment for race. BUN/Creatinine Ratio 25.7 LAB CHEMISTRY METHOD 09/20/2024 10:37 AM [facility] Calcium 8.6 8.5 - 10.5 mg/dL LAB CHEMISTRY METHOD 09/20/2024 10:37 AM [facility] AST (SGOT) 54(H) 10 - 42 unit/L LAB CHEMISTRY METHOD 09/20/2024 10:37 AM [facility] ALT (SGPT) 18 10 - 60 unit/L LAB CHEMISTRY METHOD 09/20/2024 10:37 AM [facility] Alkaline Phosphatase 76 42 - 121 unit/L LAB CHEMISTRY METHOD 09/20/2024 10:37 AM [facility] Total Protein 5.7(L) 6.0 - 8.0 g/dL LAB CHEMISTRY METHOD 09/20/2024 10:37 AM [facility] Albumin 2.7(L) 3.2 - 5.0 g/dL LAB CHEMISTRY METHOD 09/20/2024 10:37 AM EDT [facility] Total Bilirubin 1.6(H) 0.0 - 1.4 mg/dL LAB CHEMISTRY METHOD 09/20/2024 10:37 AM T [facility] Blood Venous blood specimen / Unknown Venipuncture / Unknown 09/20/2024 7:25 AM EDT 09/20/2024 9:34 AM EDT us Maura Ribera MD LAB BLOOD ORDERABLES Fin al Result [facility] [address] [place] [address], * (ABNORMAL) Complete blood count (09/20/2024 7:25 AM EDT) WBC 8.6 4.8 - 10.8 K/mcL LAB HEMETOLOGY METHOD 09/20/2024 9:54 AM [facility] RBC 2.70(L) 4.50 - 5.50 M/mcL LAB HEMETOLOGY METHOD 09/20/2024 9:54 AM [facility] Hemoglobin 8.7(L) 13.5 - 17.5 g/dL LAB HEMETOLOGY METHOD 09/20/2024 9:54 AM [facility] Hematocrit 27.7(L) 42.0 - 54.0 % LAB HEMETOLOGY METHOD 09/20/2024 9:54 AM [facility] MCV 102.2(H) 79.0 - 98.0 FL LAB HEMETOLOGY METHOD 09/20/2024 9:54 AM [facility] MCH 32.1(H) 27.0 - 32.0 pcg LAB HEMETOLOGY METHOD 09/20/2024 9:54 AM [facility] MCHC 31.4(L) 32.0 - 37.0 g/dL LAB HEMETOLOGY METHOD 09/20/2024 9:54 AM EDT [facility] RDW 14.7 11.0 - 15.0 % LAB HEMETOLOGY METHOD 09/20/2024 9:54 AM EDT [facility] Platelets 306 130 - 400 K/mcL [facility] 09/20/2024 9:54 AM EDT [facility] MPV 10.0 7.0 - 11.0 FL LAB HEMETOLOGY METHOD 09/20/2024 9:54 AM EDT [facility] NRBC 0.0 <1.0 % [facility] METHOD 09/20/2024 9:54 AM EDT [facility] NRBC Absolute 0.00 <0.10 K/mcL LAB [facility] METHOD 09/20/2024 9:54 AM EDT [facility] Blood Venous blood specimen / Unknown Venipuncture / Unknown 09/20/2024 7:25 AM EDT 09/20/2024 9:34 AM EDT us Maura Ribera MD LAB BLOOD ORDERABLES Fin al Result [facility] [address] [place] [address], documented in this encounter Visit Diagnoses Diagnosis Type 2 diabetes mellitus without complications (CMS/HCC V24, CMS/HCC V28) Hyperlipidemia, unspecified Atherosclerotic heart disease of [place] coronary artery without angina pectoris Acute embolism and thrombosis of unspecified deep veins of unspecified lower extremity (CMS/HCC V24, CMS/HCC V28) Vitamin D deficiency, unspecified Encounter for adjustment or management of cardiac device documented in this encounter Care Teams Car Pick Up Driver Relationship Specialty Start Date End Date Demetrius Meeks MD [address] [place] [address] PCP - General Internal Medicine 06/15/24 documented as of this encounter
--- OUTSIDE RECORDS SUMMARY | 2025-03-16 09:41 | XMS_ITS | Encounter Summary ---
Author Organization [facility] Address [address] [place] [address] Care Team Providers Care Construction Analyst Name Role Phone Demetrius Meeks Primary Care Provider [phone] Encounter Details Date Type Department Care Team (Late st Contact Info) Description 12/05/2021 Orders Only [facility] Neurology Clinic [address] [place] [address] Demetrius Meeks [address] [place] [address] Social History Tobacco Use Types Packs/Day Years [...] Description 03/16/2025 2:00 PM EST Office Visit [facility] [address] [place] [address] Parker Lantigua MD [address] [place] [address] 08/14/2025 1:00 PM EDT Office Visit [facility] Clinic [address] [place] [address] Alma Badillo, DAIRY NUTRITION CONSULTANT [address] [place] [address] documented as of this encounter Procedures * Due to [place] [employer] law, this organization might not be sharing negative HIV tests. Procedure Name Priority Date/Time Associated Diagnosis Comments LAB - SCANNED Routine 12/04/2021 AMB EXTERNAL XR HIP, OUTSIDE RESULT Routine 09/04/2021 US VENOUS DUPLEX, SCANNED RESULT Routine 08/29/2021 AMB EXTERNAL MRI L-SPINE, OU TSIDE RESULT Routine 08/27/2021 AMB EXTERNAL MRI BRAIN, OUTS ANDREINA RESULT Routine 10/04/2020 documented in this encounter Results * Due to [place] [employer] law, this organization might not be sharing [...] on filedocumented in this encounter Care Teams Construction Analyst Relationship Specialty Start Date End Date Demetrius Meeks PCP - General Internal Medicine 12/05/21 documented as of this encounter
--- OUTSIDE RECORDS SUMMARY | 2025-03-16 09:41 | XMS_ITS | Encounter Summary ---
Author Organization [facility] Address [address] [place] [address] Care Team Providers Care Lap Hand Tool Name Role Phone Demetrius Meeks MD Primary Care Provider + [phone] Encounter Details Date Type Department Care Team (Late Contact Info) Description 10/07/2024 Lab Requisition [facility] - Main Lab 299 [facility] [place] [address] Maura Ribera MD 819 [facility] 1 [place], [place] [id number] Type 2 diabetes mellitus without complications (CMS/HCC V24, CMS/HCC V28); Atherosclerotic heart disease of [place] coronary artery without angina pectoris; Hyperlipidemia, unspecified; [...] Description 06/12/2025 10:30 AM EST Ancillary Procedure [facility] - [address] [place] [address] documented as of this encounter Visit Diagnoses Diagnosis Type 2 diabetes mellitus without complications ([facility] V24, [facility] V28) Atherosclerotic heart disease of [place] coronary artery without angina pectoris Hyperlipidemia, unspecified Chronic embolism and thrombosis of unspecified vein Encounter for adjustment or management of cardiac device documented in this encounter Care Teams Lap Hand Tool Relationship Specialty Start Date End Date Demetrius Meeks MD [address] [place] [address] PCP - General Internal Medicine 06/15/24 documented as of this encounter
== END 2025-03-16 09:50 | disposition home or self-care (01) ==
PROVIDERS: PCP Internal Medicine; Visit Provider Hospitalist
DX: I26.09 Other pulmonary embolism with acute cor pulmonale (principal); G20.C Parkinsonism, unspecified; R91.1 Solitary pulmonary nodule
CPT/HCPCS: 99215; G2211

== ENCOUNTER → 2025-03-16 08:59 | Outpatient (BNVA) | payer MEDICARE, OTHER, SELFPAY | PROVIDERS: PCP Internal Medicine; Visit Provider Hospitalist | DX: I26.09 Other pulmonary embolism with acute cor pulmonale (principal); R91.1 Solitary pulmonary nodule; Z79.01 Long term (current) use of anticoagulants; G20.C Parkinsonism, unspecified; G47.33 Obstructive sleep apnea (adult) (pediatric); Z99.89 Dependence on other enabling machines and devices; Z91.81 History of falling; Z87.891 Personal history of nicotine dependence | CPT/HCPCS: 99212 ==